=== PATIENT | female | born 1935 | race Caucasian/White ===

== ENCOUNTER → 2017-07-17 | Outpatient (CLI) | payer OTHER ==
[~2017-07-17] MED LIST: GABA-1218 PO; INSDGI SC; LEVO150T9 PO; LPT40 PO; NRV5 PO; PLV75 PO
== END | disposition home or self-care (01) ==
LOC: C.LABSPEC 16:57
PROVIDERS: ATTEND Urology
DX: N20.0 Calculus of kidney (principal)

== ENCOUNTER → 2017-09-19 | Outpatient (CLI) | payer OTHER ==
[~2017-09-19] MED LIST changes: +ATOR-22 PO; +CLOP1TAB15 PO; +LEVO125T5 PO; -LEVO150T9 PO; -LPT40 PO; +OXYC-57 PO; -PLV75 PO; +PRED10TA PO; +TAMS0.4C38 PO; +TRAM-10 PO
== END | disposition home or self-care (01) ==
LOC: C.LABSPEC 17:01
PROVIDERS: ATTEND Urology
DX: N20.0 Calculus of kidney (principal); N39.0 Urinary tract infection, site not specified

== ENCOUNTER 2019-04-05 20:17 | Inpatient (IN) ==
[2019-04-05 20:56] LABS: Basophils # (auto) 0.02 K/uL (0-0.2); Basophils % (auto) 0.2 %; Eosinophils # (auto) 0.12 K/uL (0-0.5); Eosinophils % (auto) 1.4 %; Hematocrit (blood only) 44.7 % (37-47); Hemoglobin 14.5 g/dL (12.0-16.0); Immature Granulocytes # (auto) 0.03 K/uL (0.00-0.02); Immature Granulocytes % (auto) 0.4 %; Lymphocytes # (auto) 2.29 K/uL (1.2-3.4); Lymphocytes % (auto) 27.6 %; Mean Corpuscular Hemoglobin 31.1 pg (25-34); Mean Corpuscular Hgb Conc 32.4 g/dL (32-36); Mean Corpuscular Volume 95.9 fL (80-100); Mean Platelet Volume 10.2 fL (7.4-10.4); Monocytes # (auto) 0.95 K/uL (0.11-0.59); Monocytes % (auto) 11.5 %; Neutrophils # (auto) 4.88 K/uL (1.4-6.5); Neutrophils % (auto) 58.9 %; Platelet Count 416 K/uL (130-400); RDW Coefficient of Variation 14.3 % (11.5-14.5); RDW Standard Deviation 49.5 fL (36.4-46.3); Red Blood Count 4.66 M/uL (4.2-5.4); White Blood Count 8.29 K/uL (4.8-10.8)
--- NOTE | 2019-04-05 21:10 | Emergency Department Note ---
Entered by Asif Bhardwaj acting as a scribe for History of Present Illness General Chief complaint: Headache Stated complaint: HEADACHE,TROUBLE FOCUSING,TROUBLE SPEAKING Time Seen by Provider: 04/05/19 20:48 Source: patient History of Present Illness Onset (ago): day(s) (this morning) Location: head Pain Consistency: + constant Quality: + other (headache) Associated symptoms: + other (Positive for "garbled speech.") The patient is an 84 year old female who presents to the emergency department with complaints of a constant headache beginning this morning. The patient states that she has a history of two previous strokes and a previous concussion. She notes that she developed a headache around 0100 this morning. She reports that a friend visited her today, and she states that she had garbled speech around 1700. She notes that her garbled speech has since resolved, but she reports that she still has a headache. Home Medications Home Medications Medication Instructions Recorded Confirmed Type clopidogrel 75 mg PO QPM 10/16/18 04/05/19 History insulin glargine [Lantus Solostar 5 - 20 unit SUBCUT QPM 10/16/18 04/05/19 History U-100 Insulin] levothyroxine 125 mcg PO QAM 10/16/18 04/05/19 History acetaminophen 325 mg PO DIRECTED PRN 12/01/18 04/05/19 History tramadol 50 mg PO Q6H PRN 12/01/18 04/05/19 History ergocalciferol (vitamin D2) 50,000 unit PO WK 04/05/19 04/05/19 History [Vitamin D2] Allergies Allergy/AdvReac Type Severity Reaction Status Date / Time aspirin Allergy Severe ANAPHYLAXIS Verified 12/01/18 18:02 bee venom protein (honey bee) Allergy Severe Anaphylaxis Verified 12/01/18 18:02 tomato Allergy Severe THROATS Verified 12/01/18 18:02 SWELLS - PT CAN EAT COOKED TOMATOES, NOT RAW TOMATOE ibuprofen Allergy Intermediate RESP Verified 12/01/18 18:02 DISTRESS;ITCHY Penicillins Allergy Mild HIVES, Verified 12/01/18 18:02 ITCHING metformin Allergy Unknown Unknown Verified 12/01/18 18:02 Sulfa (Sulfonamide AdvReac Intermediate SEVERE Verified 12/01/18 18:02 Antibiotics) HEADACHE codeine AdvReac Unknown SYNTHETIC Verified 12/01/18 18:02 CODEINE CAUSES NAUSEA-CAN TOLERATE TYLENOL NO.3 Past Med/Surg History Medical History (Updated 04/05/19 @ 21:49 by Parish Higuera DO) Diabetes mellitus, type II (Chronic) Dyslipidemia (Chronic) Fibromyalgia (Chronic) History of breast cancer (Resolved) "s/p mastectomy" History of TIA (transient ischemic attack) (Chronic) Hypothyroidism (Chronic) PMR (polymyalgia rheumatica) (Chronic) Stroke Unspecified asthma (Chronic) Surgical History H/O cystoscopy (Resolved) H/O mastectomy (Resolved) "R side secondary to breast CA 2002" H/O total hip arthroplasty (Resolved) "2002" History of cholecystectomy (Resolved) History of tubal ligation (Resolved) Family History (Updated 10/16/18 @ 20:43 by Emma Dockery) Other No pertinent family history in first degree relatives Social History Preferred Language: Namibian Feels Safe at Home: Yes Smoking Status: Never smoker Review of Systems See HPI for pertinent positives & negatives. and A total of 10 systems reviewed and were otherwise negative Physical Exam Vital Signs Vital Signs - 24 hr 04/05/19 20:23 04/05/19 20:55 04/05/19 21:17 Temperature 36.4 C L Temperature Source Oral Pulse Rate 98 H Pulse Rate [Bilateral Apical] 85 86 Respiratory Rate 18 20 20 Respiratory Effort / Characteristics Non-Labored Spontaneous Non-Labored Respiratory Depth Normal Normal Blood Pressure 171/91 H Blood Pressure [Left Arm] 172/94 H 176/90 H Blood Pressure Mean 117 Blood Pressure Mean [Left Arm] 120 118 Blood Pressure Position [Left Arm] Lying Sitting Pulse Oximetry 97 98 98 Oxygen Delivery Method Room Air Room Air Room Air Sepsis Recent Fever Within 48 Hours No Sepsis Action Taken by Nursing No Action Required 04/05/19 22:09 Temperature Temperature Source Pulse Rate Pulse Rate [Bilateral Apical] 84 Respiratory Rate 20 Respiratory Effort / Characteristics Non-Labored Respiratory Depth Normal Blood Pressure Blood Pressure [Left Arm] 165/78 H Blood Pressure Mean Blood Pressure Mean [Left Arm] 107 Blood Pressure Position [Left Arm] Pulse Oximetry 95 Oxygen Delivery Method Room Air Sepsis Recent Fever Within 48 Hours Sepsis Action Taken by Nursing VITAL SIGNS: were reviewed as above. GENERAL:Non-toxic in appearance. SKIN: Warm dry and pink. HEAD: Normocephalic and atraumatic. OROPHARYNX: Is clear and moist NECK: Supple without lymphadenopathy or meningismus. LUNGS: clear. HEART: Regular rate and rhythm. ABDOMEN: Soft and nontender. EXTREMITIES: Warm and well perfused. NEUROLOGICALLY: Awake alert and oriented without focal deficit. Cranial nerves 2-12 are intact. There is no pronator drift. Cerebellar testing is within normal limits. There is no nystagmus. There is no facial droop. Speech is clear. Vision is grossly normal. MUSCULOSKELETAL: Good muscle tone. No evidence of trauma. Course Course 2050: The patient was evaluated in room B2. A complete history and physical exam was performed. 2214: Upon reevaluation, the patient is stable. I discussed the findings and the treatment plan with the patient. She expresses agreement and understanding. [facility] The patient will be evaluated for further management. Consultations Consultation #1: I reviewed the patient's [facility] He will evaluate the patient for further management. Time: 22:15 Medical Decision Making Differential Diagnosis Differential Diagnosis includes but is not limited to dehydration, stroke, anemia, hypoglycemia, hyponatremia, hypernatremia, urinary tract infection, pneumonia, bronchitis, sepsis, gastroenteritis, additional abdominal pathology, metabolic abnormalities and infections. Medical Records Attestation: I reviewed the patient's medical records. Home Medications Current Medication List: was personally reviewed by me Laboratory Data Attestation: I reviewed the patient's lab results. Result diagrams: 04/05/19 20:45 04/05/19 20:45 Lab Results 04/05/19 04/05/19 Range/Units 20:45 20:45 WBC 8.29 (4.8-10.8) K/uL RBC 4.66 (4.2-5.4) M/uL Hgb 14.5 (12.0-16.0) g/dL Hct 44.7 (37-47) % MCV 95.9 (80-100) fL MCH 31.1 (25-34) pg MCHC 32.4 (32-36) g/dL RDW Std Deviation 49.5 H (36.4-46.3) fL RDW Coeff of Dariusz 14.3 (11.5-14.5) % Plt Count 416 H (130-400) K/uL MPV 10.2 (7.4-10.4) fL Immature Gran % (Auto) 0.4 % Neut % (Auto) 58.9 % Lymph % (Auto) 27.6 % [place] % (Auto) 11.5 % Eos % (Auto) 1.4 % Baso % (Auto) 0.2 % Immature Gran # (Auto) 0.03 H (0.00-0.02) K/uL Neut # (Auto) 4.88 (1.4-6.5) K/uL Lymph # (Auto) 2.29 (1.2-3.4) K/uL [place] # (Auto) 0.95 H (0.11-0.59) K/uL Eos # (Auto) 0.12 (0-0.5) K/uL Baso # (Auto) 0.02 (0-0.2) K/uL Sodium 139 (136-145) mmol/L Potassium 3.9 (3.5-5.1) mmol/L Chloride 101 (98-107) mmol/L Carbon Dioxide 31 (21-32) mmol/L Anion Gap 6.0 (3-11) BUN 19 H (7-18) mg/dl Creatinine 0.73 (0.6-1.2) mg/dl Est Cr Clr Drug Dosing 62.1 ml/min Est GFR ( Amer) 88.9 Est GFR (Non-Af Amer) 76.7 BUN/Creatinine Ratio 26.0 H (10-20) Glucose 158 H (70-99) mg/dl Calcium 9.8 (8.5-10.1) mg/dl Total Bilirubin 0.3 (0.2-1) mg/dl AST 19 (15-37) U/L ALT 28 (12-78) U/L Alkaline Phosphatase 73 (45-117) U/L Total Protein 8.7 H (6.4-8.2) gm/dl Albumin 4.1 (3.4-5.0) gm/dl Globulin 4.6 H (2.5-4.0) gm/dl Albumin/Globulin Ratio 0.9 (0.9-2) TSH 1.780 (0.300-4.500) uIu/ml Imaging Data Radiologist's Impression: Radiology results as stated below per my review and the radiologist's interpretation: CT head/brain wo con FINDINGS: 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 Ventricles and sulci normal in size. No hemorrhage. Brain parenchyma normal in appearance with preserved vinson-white differentiation. No acute territorial infarct. No mass effect or midline shift. No extra-axial fluid collection. Polypoid mucosal thickening in the left maxillary sinus. Calvarium intact. IMPRESSION: 1. No acute intracranial abnormality. ACT 112: Negative or not required by law. Electronically signed by: Zhao Pritchett M.D. 04/05/2019 9:19 PM XR chest 1V portable FINDINGS: Atherosclerosis of the aortic arch. Cardiac silhouette borderline enlarged. No focal opacity. No large effusion or pneumothorax. Elevation of the right hemidiaphragm. Surgical clips project over the right axilla. Osteopenia suspected. Cholecystectomy clips may be present. IMPRESSION: 1. Borderline cardiomegaly. No other convincing evidence of acute cardiopulmonary disease. ACT 112: Negative or not required by law. Electronically signed by: Zhao Pritchett M.D. 04/05/2019 9:27 PM ECG Data Attestation: I personally reviewed and interpreted this ECG as follows: Indication: + other ("garbled speech") Rate (beats per minute): 89 Rhythm: + normal sinus ECG Intervals/blocks: + Normal QT-c ECG ST segments: no ST elevation ECG Findings: no PVCs Blood Pressure Blood Pressure Findings: Elevated blood pressure Blood Pressure Disposition: further management by hospitalist PETEY Narrative This is an 84-year-old female who presents to the ED with a chief complaint of strokelike symptoms. The patient presents stating that around 530 today she had difficulty speaking and could not get her words out. She also states that she cannot understand the television. Her symptoms lasted for about an hour or so and then resolved. When she came to the ED for evaluation, her symptoms have completely resolved and she is now feeling better. The patient states that yesterday around midnight she had a headache on the top of her head. She is currently on Plavix for history of TIA/CVA. Her last episode was about 4 years ago, she states. Her vital signs reveal hypertension. Her physical neuro exam were normal. CT scan of the brain did not show acute process. Chest x-ray is negative for acute disease. CBC and chemistry panel as well as TSH are normal. The patient was told the results of the test. Because of the severity of the symptoms, although resolved, the patient would benefit from further evaluation as an inpatient. She will be seen by the hospitalist service. Impression & Plan Brain TIA Discharge Plan Visit Data Chief Complaint: Headache Stated Complaint: HEADACHE,TROUBLE FOCUSING,TROUBLE SPEAKING ED Provider: Parish Higuera Discharge Problem: Brain TIA Patient Disposition: Being Evaluated by Hospitalist Forms Stand Alone Forms: My [facility] Prescriptions Prescriptions: No Action Lantus Solostar U-100 Insulin 100 unit/mL (3 mL) insulin pen 5 - 20 unit subcut QPM RF: 0 levothyroxine 125 mcg tablet 125 mcg PO QAM RF: 0 clopidogrel 75 mg tablet 75 mg PO QPM RF: 0 acetaminophen 325 mg Tablet 325 mg PO DIRECTED PRN (Reason: Pain) RF: 0 tramadol 50 mg tablet 50 mg PO Q6H PRN (Reason: Pain) RF: 0 ergocalciferol (vitamin D2) [Vitamin D2] 1,250 mcg (50,000 unit) capsule 50,000 unit PO WK RF: 0 Referrals Referrals: Zhao Chanel MD [Primary Care Provider] - The scribe's documentation has been prepared under my direction and personally reviewed by me in its entirety. I confirm that the note above accurately reflects all work, treatment, procedures, and medical decision making performed by me.
[2019-04-05 21:13] LABS: Albumin Level 4.1 gm/dl (3.4-5.0); Calcium 9.8 mg/dl (8.5-10.1); Creatinine Clr Calc Pharmacy 62.1 ml/min; Est GFR (African American) 88.9; Est GFR (Non-African American) 76.7; Potassium 3.9 mmol/L (3.5-5.1)
--- NOTE | 2019-04-05 21:20 | CT Scan Report ---
CT head/brain wo con CLINICAL HISTORY: 84 years-old Female presenting with tia like symptoms speech related. TECHNIQUE: Multidetector CT imaging of the head was performed without the use of intravenous contrast . IV contrast: None. One or more dose lowering techniques were used consistent with the principles of ALARA (as low as reasonably achievable), including automatic exposure control, mA or kV adjustment t o individual patient size, and/or use of iterative reconstruction. COMPARISON: 10/16/2018. CT DOSE (mGy.cm): The estimated cumulative dose is 614.27 mGy.cm. FINDINGS: Poultry Eviscerator topogram: Unremarkable. Ventricles and sulci normal in size. No hemorrhage. Brain parenchyma normal in appearance with preser eileen vinson-white differentiation. No acute territorial infarct. No mass effect or midline shift. No ext ra-axial fluid collection. Polypoid mucosal thickening in the left maxillary sinus. Calvarium intact. IMPRESSION: 1. No acute intracranial abnormality. ACT 112: Negative or not required by law. Electronically signed by: Zhao Pritchett M.D. 04/05/2019 9:19 PM
[2019-04-05 21:23] LABS: Albumin Globulin Ratio 0.9 (0.9-2); Bilirubin,Total 0.3 mg/dl (0.2-1); Globulin 4.6 gm/dl (2.5-4.0); Thyroid Stimulating Hormone 1.78 uIu/ml (0.300-4.500); Total Protein 8.7 gm/dl (6.4-8.2)
--- NOTE | 2019-04-05 21:29 | XRay Report ---
XR chest 1V portable CLINICAL HISTORY: 84 years-old Female presenting with weakness. TECHNIQUE: Portable upright AP view of the chest was obtained. COMPARISON: 12/21/2015. FINDINGS: Atherosclerosis of the aortic arch. Cardiac silhouette borderline enlarged. No focal opacity. No larg e effusion or pneumothorax. Elevation of the right hemidiaphragm. Surgical clips project over the rig ht axilla. Osteopenia suspected. Cholecystectomy clips may be present. IMPRESSION: 1. Borderline cardiomegaly. No other convincing evidence of acute cardiopulmonary disease. ACT 112: Negative or not required by law. Electronically signed by: Zhao Pritchett M.D. 04/05/2019 9:27 PM
[2019-04-05] MEDS ORDERED: ACETAMINOPHEN 325 MG TAB PO PRN (23:43)
[2019-04-05] MEDS ORDERED: ONDANSETRON INJ 2 MG/ML 2 ML VIAL IV PRN (23:43)
[2019-04-05] MEDS ORDERED: PHARMACIST DISCHARGE MED REC CONSULT PRN (23:43)
[2019-04-05] MEDS ORDERED: NITROGLYCERIN SL 0.4 MG/TAB TAB SL PRN (23:43)
[2019-04-05] MEDS ORDERED: TRAMADOL HCL 50 MG TABLET PO PRN (23:43)
[2019-04-05] MEDS: SODIUM CHLORIDE 0.9% 1000ML 1,000 ML IV SCH (23:53)
[2019-04-06] MEDS ORDERED: GLUCOSE 10 TABS/TUBE PO PRN (00:15)
[2019-04-06] MEDS ORDERED: GLUCAGON FOR INJ 1 MG VIAL SQ PRN (00:15)
[2019-04-06] MEDS ORDERED: CARBOHYDRATES FOR HYPOGLYCEMIA PO PRN (00:15)
[2019-04-06] MEDS ORDERED: GLUCOSE 40% GEL 15 GM TUBE PO PRN (00:15)
[2019-04-06] MEDS ORDERED: DEXTROSE 50% 50 ML SYRINGE IV PRN (00:15)
[2019-04-06] MEDS: INSULIN GLARGINE SOLOSTAR 100 UNITS/ML 3 ML PEN SQ SCH ×2 (00:42→20:41)
[2019-04-06 01:16] LABS: Appearance Urine Cloudy (Clear); Bacteria Urine Automated Negative (Negative); Bilirubin Urine Negative (Negative); Blood Urine Negative (Negative); Color Urine Yellow; Epithelial Cell Urine Auto >30 /lpf (0-5); Glucose Urine UA Negative (Negative); Ketones Urine Negative (Negative); Leukocyte Esterase Urine 2+ (Negative); Nitrite Urine Negative (Negative); Protein Urine Negative (Negative); RBC Urine Automated 0-4 /hpf (0-4); Specific Gravity Urine 1.024 (1.000-1.030); Urobilinogen Urine Negative (Negative)
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
[2019-04-06 01:38] LABS: Calcium Oxalate Crystals Urine Present (None Prsent)
[2019-04-06] MEDS: LEVOTHYROXINE SODIUM 125 MCG TABLET PO SCH (06:06)
[2019-04-06 06:59] LABS: Basophils # (auto) 0.02 K/uL (0-0.2); Basophils % (auto) 0.3 %; Eosinophils # (auto) 0.13 K/uL (0-0.5); Eosinophils % (auto) 1.7 %; Hematocrit (blood only) 40.6 % (37-47); Hemoglobin 13.1 g/dL (12.0-16.0); Immature Granulocytes # (auto) 0.01 K/uL (0.00-0.02); Immature Granulocytes % (auto) 0.1 %; Lymphocytes % (auto) 30.8 %; Mean Corpuscular Hemoglobin 30.5 pg (25-34); Mean Corpuscular Hgb Conc 32.3 g/dL (32-36); Mean Corpuscular Volume 94.6 fL (80-100); Mean Platelet Volume 10.1 fL (7.4-10.4); Monocytes # (auto) 0.87 K/uL (0.11-0.59); Monocytes % (auto) 11.6 %; Neutrophils # (auto) 4.14 K/uL (1.4-6.5); Neutrophils % (auto) 55.5 %; Platelet Count 350 K/uL (130-400); RDW Coefficient of Variation 14.2 % (11.5-14.5); RDW Standard Deviation 49.3 fL (36.4-46.3); Red Blood Count 4.29 M/uL (4.2-5.4); White Blood Count 7.47 K/uL (4.8-10.8)
[2019-04-06] MEDS ORDERED: PERFLUTREN LIPID MICROSPHERE (DEFINITY) IV ONE (07:37)
[2019-04-06 07:38] LABS: BUN Creatinine Ratio 29.2 (10-20); Calcium 8.9 mg/dl (8.5-10.1); Creatinine Clr Calc Pharmacy 83.9 ml/min; Est GFR (African American) 101.9; Est GFR (Non-African American) 87.9; Potassium 3.7 mmol/L (3.5-5.1)
--- NOTE | 2019-04-06 08:01 | Electrocardiogram Report ---
Test Reason : Blood Pressure : / mmHG Vent. Rate : 089 BPM Atrial Rate : 089 BPM P-R Int : 138 ms QRS Dur : 084 ms QT Int : 368 ms P-R-T Axes : 034 026 047 degrees QTc Int : 447 ms Normal sinus rhythm Normal ECG When compared with ECG of 16-OCT-2018 18:12, R wave progression improved Otherwise no significant change Confirmed by Cruz Starr ([id number]) on 04/06/2019 8:01:19 AM Referred By: REFERRED SELF Confirmed By:Cruz Starr
[2019-04-06] MEDS: INSULIN ASPART 100 UNITS/ML 3 ML PEN SC SCH ×4 (08:40→20:43)
[2019-04-06] MEDS: ROSUVASTATIN CALCIUM 5 MG TAB PO SCH (08:41)
[2019-04-06] MEDS ORDERED: ERGOCALCIFEROL 50,000 UNITS CAP PO SCH (09:00)
[2019-04-06] MEDS ORDERED: LORazepam 0.25 MG/0.5 ML VIAL IV PRN (09:38)
[2019-04-06] MEDS ORDERED: GADOBUTROL 65ML VIAL IV PRN (11:27)
--- NOTE | 2019-04-06 11:46 | Magnetic Resonance Report ---
MRI OF THE BRAIN WITHOUT AND WITH IV CONTRAST CLINICAL HISTORY: Speech difficulties. Possible stroke. COMPARISON STUDY: MRI the brain December 21, 2015. Head CT April 05, 2019. TECHNIQUE: Utilizing a 1.5 Tricia magnet and dedicated coil, multiplanar, multiecho imaging of the br ain was performed pre and postcontrast administration. IV administration of 7 mL of Gadavist contras t was uneventful. Thin cut T1 post contrast imaging was performed with multiplanar reconstructions. FINDINGS: There are no foci of restricted diffusion to suggest acute infarct. No acute intracranial h emorrhage, midline shift or mass effect is present. Ventricular system is normal. Basilar cisterns ar e patent. There are no extra-axial collections. Flow-voids for the major intracranial vessels are pre sent. There is no intracranial mass or pathologic enhancement. White matter T2 hyperintense foci sugg est small vessel disease. There is an old infarct within the left cooley radiata. A lobulated lesion within left maxillary sinus is unchanged from prior MRI. This is benign given stability. Calvarial si gnal is normal. IMPRESSION: 1. No acute intracranial findings. 2. No intracranial mass or pathologic enhancement. 3. No significant change in appearance of the brain. ACT 112: Negative or not required by law. Electronically signed by: Andre Salguero M.D. 04/06/2019 11:44 AM
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
[2019-04-06] MEDS ORDERED: OPTIRAY 320 125ml IV PRN (14:42)
--- NOTE | 2019-04-06 15:04 | CT Scan Report ---
CT ANGIOGRAPHY OF THE NECK WITH CONTRAST CLINICAL HISTORY: Speech difficulties. Possible stroke. COMPARISON STUDY: Carotid ultrasound November 16, 2015. MRA of the neck December 23, 2015. Technique: CT angiography of the carotid and vertebral arteries was obtained using [employer] 320 IV and 3D reconstruction on an independent workstation. NASCET criteria was utilized. Automated exposure c ontrol was utilized for the study. A dose lowering technique was utilized adhering to the principles of ALARA. CT DOSE: 533.95 mGy.cm Findings: The origins of the great vessels are not well assessed on this exam. There is mild to moder ate plaque within the proximal bilateral cervical internal carotid arteries without significant steno sis. Major vasculature of the neck is patent. There is no dissection. There is no aneurysmal dilatati on lung apices are clear. There is no cervical lymphadenopathy. No cervical spine fracture is noted. CTA of the head will be reported separately. IMPRESSION: Mild to moderate atherosclerotic plaque within the proximal bilateral internal carotid arteries witho ut significant stenosis. No dissection. ACT 112: Negative or not required by law. Electronically signed by: Andre Salguero M.D. 04/06/2019 3:03 PM
--- NOTE | 2019-04-06 15:09 | CT Scan Report ---
CTA ANGIOGRAPHY OF THE HEAD CLINICAL HISTORY: Possible stroke. Speech difficulties. COMPARISON STUDY: MRI of the brain performed earlier today. MRA of the head November 24, 2015 and O ct2015. TECHNIQUE: Helical axial images of the head were obtained following uneventful intravenous administr ation of 120 cc of Optir[employer] 320. Automated exposure control was utilized for the study. A dose lower ing technique was utilized adhering to the principles of ALARA. FINDINGS: No intraluminal thrombus, dissection or abrupt vessel cut off is identified within the intr acranial vessels. There is moderate plaque within the bilateral cavernous carotids with mild stenosis of the left cavernous carotid. Mild narrowing of the left M1 segment. Posterior circulation is intac t. There is persistence of the right posterior cerebral artery. IMPRESSION: 1. No acute findings on CTA of the head. 2. Moderate plaque within the intracranial vessels, as detailed above. This is similar to prior MRA o f December 23, 2015. ACT 112: Negative or not required by law. Electronically signed by: Andre Salguero M.D. 04/06/2019 3:08 PM
--- NOTE | 2019-04-06 15:41 | Hospitalist Progress Note ---
Date of Service April 06, 2019 Assessment & Plan (1) Aphasia: History of stroke in the past Hypertension -history of stroke, thalamus, in 2011, and in 2016 -reported to have aphasia and word finding difficulties at home and witnessed by patient's friend which may have last around 30 to 40 minutes at home on 04/05/2019 -no apparent motor or sensory deficits reported during that home episode and no loss of consciousness reported -no apparent symptoms subsequently -high blood pressure noted on arrival to ED with systolic in 170s -evaluated in the ED on 04/05/2019 and admitted to medical telemetry [facility] -while a concern for acute Transient Ischemic Attack (TIA) or acute stroke as cause of the resolved Aphasia is considered, workup to date is generally unrevealing: -CT head/brain without contrast: Ventricles and sulci normal in size. No hemorrhage. Brain parenchyma normal in appearance with preserved vinson-white differentiation. No acute territorial infarct. No mass effect or midline shift. No extra-axial fluid collection. Polypoid mucosal thickening in the left maxillary sinus. Calvarium intact. IMPRESSION: 1. No acute intracranial abnormality. -Brain MRI: There are no foci of restricted diffusion to suggest acute infarct. No acute intracranial hemorrhage, midline shift or mass effect is present. Ventricular system is normal. Basilar cisterns are patent. There are no extra-axial collections. Flow-voids for the major intracranial vessels are present. There is no intracranial mass or pathologic enhancement. White matter T2 hyperintense foci suggest small vessel disease. There is an old infarct within the left cooley radiata. A lobulated lesion within left maxillary sinus is unchanged from prior MRI. This is benign given stability. Calvarial signal is normal. IMPRESSION: 1. No acute intracranial findings. 2. No intracranial mass or pathologic enhancement. 3. No significant change in appearance of the brain. -Head CTA: No intraluminal thrombus, dissection or abrupt vessel cut off is identified within the intracranial vessels. There is moderate plaque within the bilateral cavernous carotids with mild stenosis of the left cavernous carotid. Mild narrowing of the left M1 segment. Posterior circulation is intact. There is persistence of the right posterior cerebral artery. IMPRESSION: 1. No acute findings on CTA of the head. 2. Moderate plaque within the intracranial vessels -Neck CTA: The origins of the great vessels are not well assessed on this exam. There is mild to moderate plaque within the proximal bilateral cervical internal carotid arteries without significant stenosis. Major vasculature of the neck is patent. There is no dissection. There is no aneurysmal dilatation lung apices are clear. There is no cervical lymphadenopathy. No cervical spine fracture is noted. CTA of the head will be reported separately. IMPRESSION: Mild to moderate atherosclerotic plaque within the proximal bilateral internal carotid arteries without significant stenosis. No dissection -telemetry normal sinus rhythm to date -echocardiogram with ejection fraction 60 to 65% and no noted ASD or PFO 04/06/2019: because patient imaging studies with IV contrast, will continue IV fluids and repeat renal labs on 04/07/2019 and continue to monitor on telemetry for now. patient also reported being on Rosuvastatin (Crestor) in the past but was off this medication as because of good lipid profiles. LDL on this admission is 80 which is not too bad. because patient can only take current home medication of clopidogrel 75 mg daily as antiplatelet only (no aspirin because of aspirin allergy with reported anaphylaxis as side effect), will start patient on low dose rosuvastatin 5 mg daily for now. 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 History of breast cancer status post right mastectomy in 2002. -right arm has bracelet stating"restricted limb" to avoid blood draws from that arm Deep venous thrombosis prophylaxis, sequential compression devices for now Subjective patient is slow to sit up on her own but does not appear to need assistance with bedside mobility. No focal neurological deficits at this time. no dizziness. no headache. speech is normal and no aphasia and no dysarthria. no chest pain. no shortness of breath. no abdominal pain. no dizziness. no headache. no visual complaints Review of Systems Review of Systems: All systems reviewed & are unremarkable except as noted in HPI & below Physical Exam Constitutional: comfortable Eyes: PERRL, conjunctivae normal, anicteric sclerae EOM intact bilaterally ENMT: external ear and nose normal, oropharynx normal Neck: trachea midline, no thyromegaly normal visual inspection Respiratory: normal respiratory effort, lungs clear to auscultation Cardiovascular: RRR, no murmur, no edema Gastrointestinal (Abdomen): normal bowel sounds, soft, nontender, no hepatosplenomegaly Musculoskeletal: Head/Neck/Chest: normocephalic and head atraumatic Neurologic: PERRL, EOMI, accommodation nl, no face palsy, no dysarthria CN's II-XI intact bilaterally Psychiatric: A+Ox3, euthymic affect Results & Data ([facility]) Vital Signs (Past 12 Hours) Vital Signs Temp Pulse Resp BP Pulse Ox 04/06/19 11:56 36.8 C 75 18 150/76 H 96 04/06/19 08:23 36.8 C 84 18 142/67 H 96
[2019-04-06] MEDS: SODIUM CHLORIDE 0.9% 1000ML 1,000 ML IV SCH ×2 (16:15→16:38)
[2019-04-06] MEDS ORDERED: CLOPIDOGREL BISULFATE 75 MG TAB PO SCH (21:00)
[2019-04-07] MEDS: LEVOTHYROXINE SODIUM 125 MCG TABLET PO SCH (04:59)
[2019-04-07] MEDS: SODIUM CHLORIDE 0.9% 1000ML 1,000 ML IV SCH (04:59)
[2019-04-07 06:43] LABS: Basophils # (auto) 0.02 K/uL (0-0.2); Basophils % (auto) 0.3 %; Eosinophils # (auto) 0.15 K/uL (0-0.5); Eosinophils % (auto) 2.3 %; Hematocrit (blood only) 37.9 % (37-47); Hemoglobin 12.7 g/dL (12.0-16.0); Immature Granulocytes # (auto) 0.03 K/uL (0.00-0.02); Immature Granulocytes % (auto) 0.5 %; Lymphocytes # (auto) 1.49 K/uL (1.2-3.4); Mean Corpuscular Hemoglobin 31.3 pg (25-34); Mean Corpuscular Hgb Conc 33.5 g/dL (32-36); Mean Corpuscular Volume 93.3 fL (80-100); Mean Platelet Volume 9.6 fL (7.4-10.4); Monocytes # (auto) 0.75 K/uL (0.11-0.59); Monocytes % (auto) 11.6 %; Neutrophils # (auto) 4.04 K/uL (1.4-6.5); Neutrophils % (auto) 62.3 %; Platelet Count 333 K/uL (130-400); RDW Coefficient of Variation 14.1 % (11.5-14.5); RDW Standard Deviation 48.3 fL (36.4-46.3); Red Blood Count 4.06 M/uL (4.2-5.4); White Blood Count 6.48 K/uL (4.8-10.8)
[2019-04-07 06:56] LABS: Estimated Average Glucose 137 mg/dl; Hemoglobin A1C 6.4 % (4.5-5.6)
[2019-04-07 07:16] LABS: BUN Creatinine Ratio 29.8 (10-20); Creatinine Clr Calc Pharmacy 79.5 ml/min; Est GFR (African American) 100.1; Est GFR (Non-African American) 86.3; Potassium 3.9 mmol/L (3.5-5.1)
[2019-04-07] MEDS: INSULIN ASPART 100 UNITS/ML 3 ML PEN SC SCH ×2 (08:35→11:53)
[2019-04-07] MEDS ORDERED: ROSUVASTATIN CALCIUM 5 MG TAB PO SCH ×2 (09:00→21:00)
[2019-04-07] MEDS ORDERED: NURSING DECISION MEDICATION ONE ×2 (09:49→11:22)
[2019-04-07] MEDS: ROSUVASTATIN CALCIUM 5 MG TAB PO SCH (11:16)
[2019-04-07] MEDS ORDERED: STROKE PATIENT DISCHARGE STA (13:32)
--- NOTE | 2019-04-07 13:39 | Hospitalist Progress Note ---
Date of Service April 07, 2019 Assessment & Plan (1) Aphasia: Aphasia secondary to Transient ischemic attack (TIA) History of stroke in the past Hypertension -history of stroke, thalamus, in 2011, and in 2016 -reported to have aphasia and word finding difficulties at home and witnessed by patient's friend which may have last around 30 to 40 minutes at home on 04/05/2019 -no apparent motor or sensory deficits reported during that home episode and no loss of consciousness reported -no apparent symptoms subsequently -high blood pressure noted on arrival to ED with systolic in 170s -evaluated in the ED on 04/05/2019 and admitted to medical telemetry [facility] -while a concern for acute Transient Ischemic Attack (TIA) or acute stroke as cause of the resolved Aphasia is considered, workup to date is generally unrevealing: -CT head/brain without contrast: Ventricles and sulci normal in size. No hemorrhage. Brain parenchyma normal in appearance with preserved vinson-white differentiation. No acute territorial infarct. No mass effect or midline shift. No extra-axial fluid collection. Polypoid mucosal thickening in the left maxillary sinus. Calvarium intact. IMPRESSION: 1. No acute intracranial abnormality. -Brain MRI: There are no foci of restricted diffusion to suggest acute infarct. No acute intracranial hemorrhage, midline shift or mass effect is present. Ventricular system is normal. Basilar cisterns are patent. There are no extra-axial collections. Flow-voids for the major intracranial vessels are present. There is no intracranial mass or pathologic enhancement. White matter T2 hyperintense foci suggest small vessel disease. There is an old infarct within the left cooley radiata. A lobulated lesion within left maxillary sinus is unchanged from prior MRI. This is benign given stability. Calvarial signal is normal. IMPRESSION: 1. No acute intracranial findings. 2. No intracranial mass or pathologic enhancement. 3. No significant change in appearance of the brain. -Head CTA: No intraluminal thrombus, dissection or abrupt vessel cut off is identified within the intracranial vessels. There is moderate plaque within the bilateral cavernous carotids with mild stenosis of the left cavernous carotid. Mild narrowing of the left M1 segment. Posterior circulation is intact. There is persistence of the right posterior cerebral artery. IMPRESSION: 1. No acute findings on CTA of the head. 2. Moderate plaque within the intracranial vessels -Neck CTA: The origins of the great vessels are not well assessed on this exam. There is mild to moderate plaque within the proximal bilateral cervical internal carotid arteries without significant stenosis. Major vasculature of the neck is patent. There is no dissection. There is no aneurysmal dilatation lung apices are clear. There is no cervical lymphadenopathy. No cervical spine fracture is noted. CTA of the head will be reported separately. IMPRESSION: Mild to moderate atherosclerotic plaque within the proximal bilateral internal carotid arteries without significant stenosis. No dissection -telemetry normal sinus rhythm to date -echocardiogram with ejection fraction 60 to 65% and no noted ASD or PFO 04/06/2019: because patient imaging studies with IV contrast, will continue IV fluids and repeat renal labs on 04/07/2019 and continue to monitor on telemetry for now. patient also reported being on Rosuvastatin (Crestor) in the past but was off this medication as because of good lipid profiles. LDL on this admission is 80 which is not too bad. because patient can only take current home medication of clopidogrel 75 mg daily as antiplatelet only (no aspirin because of aspirin allergy with reported anaphylaxis as side effect), will start patient on low dose rosuvastatin 5 mg daily for now. currently blood pressure is controlled for now 04/07/2019: no current neurological deficits or acute telemetry events. Aphasia secondary to Transient ischemic attack (TIA) as the diagnosis in my discussions with neurology service. Discharge to Home LDL is 80. suggested target is LDL of 70 or less. no telemetry events Discharge medications for trial of Rosuvastatin (Crestor) 5 mg daily for 14 days sent electronically [employer] [address] [facility] [place] [address]. 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 History of breast cancer status post right mastectomy in 2002. -right arm has bracelet stating"restricted limb" to avoid blood draws from that arm Discharge Instructions Aphasia secondary to transient ischemic attack (TIA) History of stroke in the past Hypertension Type 2 diabetes mellitus with shelter current use of insulin Admission and Anticipated Discharge Date Admission Date: April 05, 2019 Subjective no acute telemetry events. no acute neurologic symptoms during hospital stay. was recommended by neurology for hospital discharge. discharge instructions discussed at length. Patient wishes to be discharge to home no focal neurological deficits. no headache. no dizziness. no slurred speech. no asymmetric weakness. no fevers. Review of Systems Review of Systems: All systems reviewed & are unremarkable except as noted in HPI & below Physical Exam Constitutional: comfortable Eyes: PERRL, conjunctivae normal, anicteric sclerae EOM intact bilaterally ENMT: external ear and nose normal, oropharynx normal Neck: trachea midline, no thyromegaly normal visual inspection Respiratory: normal respiratory effort, lungs clear to auscultation Cardiovascular: RRR, no murmur, no edema Gastrointestinal (Abdomen): normal bowel sounds, soft, nontender, no hepatosplenomegaly Musculoskeletal: Head/Neck/Chest: normocephalic and head atraumatic Neurologic: PERRL, EOMI, accommodation nl, no face palsy, no dysarthria CN's II-XI intact bilaterally Psychiatric: A+Ox3, euthymic affect Results & Data ([facility]) Vital Signs (Past 12 Hours) Vital Signs Temp Pulse Pulse Resp BP Pulse Ox 04/07/19 11:11 37.0 C 76 19 132/65 95 04/07/19 08:00 78 04/07/19 07:18 36.9 C 77 19 135/70 96 04/07/19 03:31 36.3 C L 81 16 165/84 H 97
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
--- NOTE | 2019-04-07 15:13 | Pharmacy Report ---
Pharmacist Stroke Counseling - Date of Service April 07, 2019 - Scope: Pharmacy has been consulted to provide medication discharge counseling for this patient admitted with transient ischemic attack as per the Pharmacist Discharge Counseling for Stroke Patients Protocol. - Medications on Discharge: Home Medications Medication Instructions Recorded Confirmed Lantus Solostar U-100 Insulin 5 - 20 unit SUBCUT QPM 10/16/18 04/05/19 clopidogrel 75 mg PO QPM 10/16/18 04/05/19 levothyroxine 125 mcg PO QAM 10/16/18 04/05/19 acetaminophen 325 mg PO DIRECTED PRN 12/01/18 04/05/19 tramadol 50 mg PO Q6H PRN 12/01/18 04/05/19 ergocalciferol (vitamin D2) 50,000 unit PO WK 04/05/19 04/05/19 [Vitamin D2] New Rx's Medication Instructions Recorded rosuvastatin [Crestor] 5 mg PO HS 14 Days #14 tab 04/07/19 - Action: The above medications, specifically ones for stroke treatment/prophylaxis, have been reviewed in detail with the patient prior to discharge. This includes indication, common adverse reactions, drug interactions, and medication administration. Medication counseling has been employed using the teach-back method to ensure understanding. - Outcome: The patient has demonstrated understanding of the medications. Please note, they are aware that the pharmacist will call them within 72 hours post-discharge to confirm that the appropriate medications are being taken and answer any further medication related questions the patient might have at that time. Contact information Individual to be contacted: self Relationship to patient (if applicable): N/A Phone number: [phone] Best time to call: anytime except (patient goes to PT) Additional comments: Reviewed Plavix with patient. She initially got this confused with Synthroid. Reviewed side effects (denies any). Denies problems with heartburn. Reviewed Crestor (rosuvastatin) with patient. She was initially concerned because she has many medication allergies and was uncertain if she should start this while no one is around. She was not certain if this was the one she was taking once a week. I told patient that if she tolerated one agent she most likely would be fine with this one. This class not typically associated with allergic reactions. Reviewed ADEs. Thank you for allowing pharmacy to be involved in the care of this patient. Please call [phone] or [phone] with any additional questions
--- NOTE | 2019-04-10 15:10 | Pharmacy Report ---
Pharmacist Post D/C Phone Note - Phone Note: Date of phone call: April 10, 2019. The patient and/or patient marketing sales representative(s) were unable to be reached for a follow-up phone call within the 72 hour time frame. Discharge counseling pharmacist contact information has already been provided to the patient should questions arise. Thank you for allowing us to be involved in the care of this patient. - Home Medications: Home Medications Medication Instructions Recorded Confirmed Lantus Solostar U-100 Insulin 5 - 20 unit SUBCUT QPM 10/16/18 04/05/19 clopidogrel 75 mg PO QPM 10/16/18 04/05/19 levothyroxine 125 mcg PO QAM 10/16/18 04/05/19 acetaminophen 325 mg PO DIRECTED PRN 12/01/18 04/05/19 tramadol 50 mg PO Q6H PRN 12/01/18 04/05/19 ergocalciferol (vitamin D2) 50,000 unit PO WK 04/05/19 04/05/19 [Vitamin D2] New Rx's Medication Instructions Recorded rosuvastatin [Crestor] 5 mg PO HS 14 Days #14 tab 04/07/19
== END 2019-04-07 15:21 | disposition home or self-care (01) | DRG 69 ==
LOC: ED 20:17 → 2S 22:55

== ENCOUNTER 2022-05-24 11:07 | Observation (INO) ==
--- NOTE | 2022-05-24 11:30 | Emergency Department Note ---
History of Present Illness General Chief complaint: Confusion Stated complaint: CONFUSION Time Seen by Provider: 05/24/22 11:14 History of Present Illness Provider complaint: Altered mental status headache Onset (ago): hour(s) 2 87-year-old female presents emergency department for confusion and headache. Son is at bedside giving history. He reports that 2 hours ago the patient started having a headache and became acutely confused. He states he was worried she was having a TIA. No traumas. No blood thinners. Home Medications Medication Instructions Recorded Confirmed Type clopidogrel 75 mg tablet 75 mg PO QPM 10/16/18 05/24/22 History levothyroxine 125 mcg tablet 125 mcg PO QAM 10/16/18 05/24/22 History acetaminophen 325 mg tablet 325 mg PO DIRECTED PRN Pain 12/01/18 05/24/22 History ergocalciferol (vitamin D2) 1,250 50,000 unit PO WK 04/05/19 05/24/22 History mcg (50,000 unit) capsule (Vitamin D2) rosuvastatin 5 mg tablet 5 mg PO DAILY 03/31/21 05/24/22 History Allergies Allergy/AdvReac Type Severity Reaction Status Date / Time aspirin Allergy Severe ANAPHYLAXIS Verified 05/24/22 11:33 bee venom protein (honey bee) Allergy Severe Anaphylaxis Verified 05/24/22 11:33 ibuprofen Allergy Severe RESP Verified 05/24/22 11:33 DISTRESS;ITCHY tomato Allergy Severe THROATS Verified 05/24/22 11:33 SWELLS - PT CAN EAT COOKED TOMATOES, NOT RAW TOMATOE Penicillins Allergy Intermediate HIVES, Verified 05/24/22 11:33 ITCHING metformin Allergy Unknown Unknown Verified 05/24/22 11:33 codeine AdvReac Intermediate SYNTHETIC Verified 05/24/22 11:33 CODEINE CAUSES NAUSEA-CAN TOLERATE TYLENOL NO.3 Sulfa (Sulfonamide AdvReac Intermediate SEVERE Verified 05/24/22 11:33 Antibiotics) HEADACHE Past Med/Surg History Medical History Diabetes mellitus, type II Dyslipidemia Fibromyalgia History of breast cancer "s/p mastectomy" History of TIA (transient ischemic attack) Hypothyroidism PMR (polymyalgia rheumatica) Stroke Unspecified asthma Surgical History H/O cystoscopy H/O mastectomy "R side secondary to breast CA 2002" H/O total hip arthroplasty "2002" History of cholecystectomy History of tubal ligation Family History Other No pertinent family history in first degree relatives Social History Smoking Status: Never smoker Hx Alcohol Use: No Hx Substance Use: No Preferred Language: Grenadian Communication Ability: Effective Visual Impairment: No Limitations [employer] Security Supervisor Required: No Beliefs That Will Affect Care: None Current Living Situation: Alone Feels Safe at Home: Yes Assistive Devices: Walker Physical Exam Vital Signs Vital Signs - 24 hr 05/24/22 11:08 05/24/22 11:17 05/24/22 12:15 Temperature 36.7 C Temperature Source Oral Pulse Rate 109 H 90 Pulse Rate [Apical] Respiratory Rate 20 Respiratory Effort / Characteristics Non-Labored Spontaneous Respiratory Depth Normal Respiratory Pattern Regular Blood Pressure 206/94 H Blood Pressure [Left Arm] Blood Pressure Mean 131 Blood Pressure Mean [Left Arm] Pulse Oximetry 97 Oxygen Delivery Method Room Air Room Air Oxygen Flow Rate Sepsis Recent Fever Within 48 Hours No Sepsis New/Unexplained Change in Mental Status Yes Sepsis Action Taken by Nursing Physician Notified 05/24/22 12:00 05/24/22 11:43 05/24/22 14:00 Temperature Temperature Source Pulse Rate Pulse Rate [Apical] 97 H 86 Respiratory Rate 18 16 Respiratory Effort / Characteristics Non-Labored Spontaneous Non-Labored Spontaneous Respiratory Depth Normal Normal Respiratory Pattern Blood Pressure Blood Pressure [Left Arm] 154/71 H 146/74 H Blood Pressure Mean Blood Pressure Mean [Left Arm] 98 98 Pulse Oximetry 100 88 L 97 Oxygen Delivery Method Nasal Cannula Room Air Room Air Oxygen Flow Rate 2 Sepsis Recent Fever Within 48 Hours Sepsis New/Unexplained Change in Mental Status Sepsis Action Taken by Nursing Physical Exam HENT: Exam performed. - Head: Normocephalic and atraumatic. NECK: Normal range of motion. Neck supple. No JVD present. CV: Normal rate, regular rhythm, normal heart sounds and intact distal pulses. There is no peripheral edema. Palpable radial pulses bue. PULM/CHEST: Effort normal and breath sounds normal. No respiratory distress. No stridor. no wheezes. no rales. ABD: The abdomen is soft. There is no tenderness. NEURO: NIHSS 2 (1b:1, 10:1) Course Course 1114: The patient was evaluated in room A2. A complete history and physical exam was performed Cardiac monitoring: An order was placed for continuous cardiac monitoring. The monitor shows a rate of 110 with sinus rhythm interpreted by me Code stroke called. 1132: Son is now reporting that the patient was having difficulty seeing out of her left eye. External medical records reviewed. Patient was seen for almost identical symptoms in December 2021. Discussed case with teleneurology stroke doctor Dr. Cary who states she will help evaluate the patient. 1210: CT scans negative. Spoke with Dr. Cary Riri teleneurology. She reviewed the patient's CT scans and states he and the patient's low NIH stroke scale and her previous old stroke she did not think that the patient would be a good candidate for TNKase. She states to work-up the patient for metabolic or toxic causes of her symptoms and if those do not reveal a cause of the patient's symptoms the patient can have an MRI to rule out stroke. Dr. Cary again states no TNKase for the patient. 1330: Vital signs stable. Labs within normal limits with exception of urine showing possible UTI. Patient treated with Cipro. Patient be admitted to the hospitalist team for TIA/CVA and UTI. Administered Medications Ciprofloxacin (Cipro / D5w) 400 mg in 200 mls @ 100 mls/hr IV NOW STA; Protocol Stop: 05/24/22 15:19 Last Admin: 05/24/22 13:32 Dose: 100 mls/hr Documented By: Discontinued Medications Ioversol (Optiray 320 500ml) 115 ml IV ONCE ONE Stop: 05/24/22 11:43 Last Admin: 05/24/22 11:43 Dose: 115 ml Documented By: PEDRO LUIS Medical Decision Making Laboratory Data Attestation: I reviewed the patient's lab results. 05/24/22 11:39 05/24/22 11:39 Lab Results 05/24/22 05/24/22 05/24/22 Range/Units 11:39 11:39 11:39 WBC 6.75 (4.8-10.8) K/ul RBC 4.07 L (4.20-5.40) M/uL Hgb 12.7 (12.0-16.0) g/dl Hct 39.3 (37.0-47.0) % MCV 96.6 (80.0-100.0) fL MCH 31.2 (25.0-34.0) pg MCHC 32.3 (32.0-36.0) g/dL RDW Std Deviation 46.2 (36.4-46.3) fL RDW Coeff of Dariusz 12.9 (11.5-14.5) % Plt Count 302 (130-400) K/uL MPV 10.0 (9.4-12.4) fL Immature Gran % (Auto) 0.7 % Neut % (Auto) 76.5 % Lymph % (Auto) 16.0 % Carolina % (Auto) 6.2 % Eos % (Auto) 0.3 % Baso % (Auto) 0.3 % Neut # (Auto) 5.16 (1.40-6.50) K/uL Lymph # (Auto) 1.08 L (1.2-3.4) K/uL Carolina # (Auto) 0.42 (0.11-0.59) K/uL Eos # (Auto) 0.02 (0-0.50) K/uL Baso # (Auto) 0.02 (0-0.2) K/uL Immature Gran # (Auto) 0.05 (0.01-0.20) K/uL ESR (0-30) mm/hr PT 11.1 (9.0-12.0) Seconds INR 1.0 (0.9-1.1) APTT 29.3 (21.0-31.0) Seconds PTT Ratio 1.1 ABG pH (7.35-7.45) ABG pCO2 (35-46) mmHg ABG pO2 (80-95) mmHg ABG HCO3 (19-24) mmol/L ABG O2 Saturation (90-95) % ABG Base Excess (-9-1.8) mEq/L Jevon Test (Pos) Oxygen Given Sodium (136-145) mmol/L Potassium (3.5-5.1) mmol/L Chloride (98-107) mmol/L Carbon Dioxide (21-32) mmol/L Anion Gap (3-11) BUN (6-23) mg/dl Creatinine (0.6-1.2) mg/dl Est Cr Clr Drug Dosing ml/min Est GFR ( Amer) ml/min Est GFR (Non-Af Amer) ml/min BUN/Creatinine Ratio (10-20) Glucose (70-99(Fasting)) mg/dl POC Glucose (70-99) mg/dl Calcium (8.6-10.3) mg/dl Magnesium (1.7-2.4) mg/dl Total Bilirubin (0.2-1.0) mg/dl AST (13-39) U/L ALT (7-52) U/L Alkaline Phosphatase (34-104) U/L Ammonia (18-72) umol/L Troponin I High Sens (0-14) pg/ml Total Protein (6.0-8.3) gm/dl Albumin (3.4-5.0) gm/dl Globulin (2.5-4.0) gm/dl Albumin/Globulin Ratio (0.9-2) Urine Color Urine Appearance (Clear) Urine pH (4.5-7.5) Ur Specific Sasabe (1.000-1.030) Urine Protein (Negative) Urine Glucose (UA) (Negative) Urine Ketones (Negative) Urine Blood (Negative) Urine Nitrite (Negative) Urine Bilirubin (Negative) Urine Urobilinogen (Negative) Ur Leukocyte Esterase (Negative) Urine WBC (Auto) (0-5) /hpf Urine RBC (Auto) (0-4) /hpf U Hyaline Cast (Auto) (0-5) /lpf U Epithel Cells (Auto) (0-5) /lpf Urine Bacteria (Auto) (Negative) SARS-CoV-2, RNA, NAAT (NEGATIVE) Blood Type O Positive Antibody Screen NEGATIVE 05/24/22 05/24/22 05/24/22 Range/Units 11:39 11:39 11:43 WBC (4.8-10.8) K/ul RBC (4.20-5.40) M/uL Hgb (12.0-16.0) g/dl Hct (37.0-47.0) % MCV (80.0-100.0) fL MCH (25.0-34.0) pg MCHC (32.0-36.0) g/dL RDW Std Deviation (36.4-46.3) fL RDW Coeff of Dariusz (11.5-14.5) % Plt Count (130-400) K/uL MPV (9.4-12.4) fL Immature Gran % (Auto) % Neut % (Auto) % Lymph % (Auto) % Carolina % (Auto) % Eos % (Auto) % Baso % (Auto) % Neut # (Auto) (1.40-6.50) K/uL Lymph # (Auto) (1.2-3.4) K/uL Carolina # (Auto) (0.11-0.59) K/uL Eos # (Auto) (0-0.50) K/uL Baso # (Auto) (0-0.2) K/uL Immature Gran # (Auto) (0.01-0.20) K/uL ESR 11 (0-30) mm/hr PT (9.0-12.0) Seconds INR (0.9-1.1) APTT (21.0-31.0) Seconds PTT Ratio ABG pH (7.35-7.45) ABG pCO2 (35-46) mmHg ABG pO2 (80-95) mmHg ABG HCO3 (19-24) mmol/L ABG O2 Saturation (90-95) % ABG Base Excess (-9-1.8) mEq/L Jevon Test (Pos) Oxygen Given Sodium 136 (136-145) mmol/L Potassium 3.7 (3.5-5.1) mmol/L Chloride 102 (98-107) mmol/L Carbon Dioxide 27 (21-32) mmol/L Anion Gap 7 (3-11) BUN 17 (6-23) mg/dl Creatinine 0.54 L (0.6-1.2) mg/dl Est Cr Clr Drug Dosing 75.3 ml/min Est GFR ( Amer) 99.7 ml/min Est GFR (Non-Af Amer) 86.0 ml/min BUN/Creatinine Ratio 31.5 H (10-20) Glucose 140 H (70-99(Fasting)) mg/dl POC Glucose 131 H (70-99) mg/dl Calcium 8.6 (8.6-10.3) mg/dl Magnesium 1.9 (1.7-2.4) mg/dl Total Bilirubin 0.4 (0.2-1.0) mg/dl AST 14 (13-39) U/L ALT 13 (7-52) U/L Alkaline Phosphatase 56 (34-104) U/L Ammonia (18-72) umol/L Troponin I High Sens 8.9 (0-14) pg/ml Total Protein 6.4 (6.0-8.3) gm/dl Albumin 3.8 (3.4-5.0) gm/dl Globulin 2.6 (2.5-4.0) gm/dl Albumin/Globulin Ratio 1.5 (0.9-2) Urine Color Urine Appearance (Clear) Urine pH (4.5-7.5) Ur Specific Sasabe (1.000-1.030) Urine Protein (Negative) Urine Glucose (UA) (Negative) Urine Ketones (Negative) Urine Blood (Negative) Urine Nitrite (Negative) Urine Bilirubin (Negative) Urine Urobilinogen (Negative) Ur Leukocyte Esterase (Negative) Urine WBC (Auto) (0-5) /hpf Urine RBC (Auto) (0-4) /hpf U Hyaline Cast (Auto) (0-5) /lpf U Epithel Cells (Auto) (0-5) /lpf Urine Bacteria (Auto) (Negative) SARS-CoV-2, RNA, NAAT (NEGATIVE) Blood Type Antibody Screen 05/24/22 05/24/22 05/24/22 Range/Units 12:15 12:21 12:23 WBC (4.8-10.8) K/ul RBC (4.20-5.40) M/uL Hgb (12.0-16.0) g/dl Hct (37.0-47.0) % MCV (80.0-100.0) fL MCH (25.0-34.0) pg MCHC (32.0-36.0) g/dL RDW Std Deviation (36.4-46.3) fL RDW Coeff of Dariusz (11.5-14.5) % Plt Count (130-400) K/uL MPV (9.4-12.4) fL Immature Gran % (Auto) % Neut % (Auto) % Lymph % (Auto) % [place] % (Auto) % Eos % (Auto) % Baso % (Auto) % Neut # (Auto) (1.40-6.50) K/uL Lymph # (Auto) (1.2-3.4) K/uL Carolina # (Auto) (0.11-0.59) K/uL Eos # (Auto) (0-0.50) K/uL Baso # (Auto) (0-0.2) K/uL Immature Gran # (Auto) (0.01-0.20) K/uL ESR (0-30) mm/hr PT (9.0-12.0) Seconds INR (0.9-1.1) APTT (21.0-31.0) Seconds PTT Ratio ABG pH (7.35-7.45) ABG pCO2 (35-46) mmHg ABG pO2 (80-95) mmHg ABG HCO3 (19-24) mmol/L ABG O2 Saturation (90-95) % ABG Base Excess (-9-1.8) mEq/L Jevon Test (Pos) Oxygen Given Sodium (136-145) mmol/L Potassium (3.5-5.1) mmol/L Chloride (98-107) mmol/L Carbon Dioxide (21-32) mmol/L Anion Gap (3-11) BUN (6-23) mg/dl Creatinine (0.6-1.2) mg/dl Est Cr Clr Drug Dosing ml/min Est GFR ( Amer) ml/min Est GFR (Non-Af Amer) ml/min BUN/Creatinine Ratio (10-20) Glucose (70-99(Fasting)) mg/dl POC Glucose (70-99) mg/dl Calcium (8.6-10.3) mg/dl Magnesium (1.7-2.4) mg/dl Total Bilirubin (0.2-1.0) mg/dl AST (13-39) U/L ALT (7-52) U/L Alkaline Phosphatase (34-104) U/L Ammonia 39.0 (18-72) umol/L Troponin I High Sens (0-14) pg/ml Total Protein (6.0-8.3) gm/dl Albumin (3.4-5.0) gm/dl Globulin (2.5-4.0) gm/dl Albumin/Globulin Ratio (0.9-2) Urine Color Yellow Urine Appearance Cloudy A (Clear) Urine pH 7.5 (4.5-7.5) Ur Specific Sasabe 1.037 H (1.000-1.030) Urine Protein 1+ H (Negative) Urine Glucose (UA) Negative (Negative) Urine Ketones 1+ H (Negative) Urine Blood Trace H (Negative) Urine Nitrite Negative (Negative) Urine Bilirubin Negative (Negative) Urine Urobilinogen Negative (Negative) Ur Leukocyte Esterase Trace H (Negative) Urine WBC (Auto) 10-30 H (0-5) /hpf Urine RBC (Auto) 5-10 H (0-4) /hpf U Hyaline Cast (Auto) 1-5 (0-5) /lpf U Epithel Cells (Auto) >30 H (0-5) /lpf Urine Bacteria (Auto) 3+ H (Negative) SARS-CoV-2, RNA, NAAT NEGATIVE (NEGATIVE) Blood Type Antibody Screen 05/24/22 Range/Units 12:23 WBC (4.8-10.8) K/ul RBC (4.20-5.40) M/uL Hgb (12.0-16.0) g/dl Hct (37.0-47.0) % MCV (80.0-100.0) fL MCH (25.0-34.0) pg MCHC (32.0-36.0) g/dL RDW Std Deviation (36.4-46.3) fL RDW Coeff of Dariusz (11.5-14.5) % Plt Count (130-400) K/uL MPV (9.4-12.4) fL Immature Gran % (Auto) % Neut % (Auto) % Lymph % (Auto) % [place] % (Auto) % Eos % (Auto) % Baso % (Auto) % Neut # (Auto) (1.40-6.50) K/uL Lymph # (Auto) (1.2-3.4) K/uL [place] # (Auto) (0.11-0.59) K/uL Eos # (Auto) (0-0.50) K/uL Baso # (Auto) (0-0.2) K/uL Immature Gran # (Auto) (0.01-0.20) K/uL ESR (0-30) mm/hr PT (9.0-12.0) Seconds INR (0.9-1.1) APTT (21.0-31.0) Seconds PTT Ratio ABG pH 7.42 (7.35-7.45) ABG pCO2 42 (35-46) mmHg ABG pO2 98 H (80-95) mmHg ABG HCO3 27 H (19-24) mmol/L ABG O2 Saturation 99.4 H (90-95) % ABG Base Excess 2.4 H (-9-1.8) mEq/L Jevon Test Pos (Pos) Oxygen Given 1 L Sodium (136-145) mmol/L Potassium (3.5-5.1) mmol/L Chloride (98-107) mmol/L Carbon Dioxide (21-32) mmol/L Anion Gap (3-11) BUN (6-23) mg/dl Creatinine (0.6-1.2) mg/dl Est Cr Clr Drug Dosing ml/min Est GFR ( Amer) ml/min Est GFR (Non-Af Amer) ml/min BUN/Creatinine Ratio (10-20) Glucose (70-99(Fasting)) mg/dl POC Glucose (70-99) mg/dl Calcium (8.6-10.3) mg/dl Magnesium (1.7-2.4) mg/dl Total Bilirubin (0.2-1.0) mg/dl AST (13-39) U/L ALT (7-52) U/L Alkaline Phosphatase (34-104) U/L Ammonia (18-72) umol/L Troponin I High Sens (0-14) pg/ml Total Protein (6.0-8.3) gm/dl Albumin (3.4-5.0) gm/dl Globulin (2.5-4.0) gm/dl Albumin/Globulin Ratio (0.9-2) Urine Color Urine Appearance (Clear) Urine pH (4.5-7.5) Ur Specific S[place]abe (1.000-1.030) Urine Protein (Negative) Urine Glucose (UA) (Negative) Urine Ketones (Negative) Urine Blood (Negative) Urine Nitrite (Negative) Urine Bilirubin (Negative) Urine Urobilinogen (Negative) Ur Leukocyte Esterase (Negative) Urine WBC (Auto) (0-5) /hpf Urine RBC (Auto) (0-4) /hpf U Hyaline Cast (Auto) (0-5) /lpf U Epithel Cells (Auto) (0-5) /lpf Urine Bacteria (Auto) (Negative) SARS-CoV-2, RNA, NAAT (NEGATIVE) Blood Type Antibody Screen Imaging Data Attestation: I personally reviewed and interpreted this imaging study as follows: My Impression: CT head: No [facility] Radiologist's Impression: Chest X-Ray 05/24/22 11:25 SINGLE VIEW CHEST CLINICAL HISTORY: Neurological deficit. Stroke like symptoms. FINDINGS: An AP, portable, upright chest radiograph is compared to study dated 05/18/2021 and correlated with chest CT dated 05/12/2022. The examination is degraded by portable technique and patient rotation. The cardiomediastinal silhouette is unremarkable noting atherosclerotic calcification of the thoracic aorta. Chronic interstitial thickening is similar to previous. There is bibasilar scarring/atelectasis with chronic elevation of the right hemidiaphragm. No airspace consolidation, large pleural effusion, or pneumothorax is seen. The skeletal structures are osteopenic. The bony thorax is grossly intact. Surgical clips are noted in the right axilla. IMPRESSION: No acute cardiopulmonary abnormality. ACT 112: Negative or not required by law. Electronically signed by: Hari Cooper M.D. 05/24/2022 12:[address] 05/24/22 11:[address] DOSE: 1211.73 mGy.cm HISTORY: Confusion. neuro deficit, acute stroke suspected TECHNIQUE: Multiaxial CT images of the head were performed without the use of intravenous contrast. Automated exposure control was utilized for this study. A dose lowering technique was utilized adhering to the principles of ALARA. Comparison: Head CT 01/06/2022. Findings: Near complete opacities in the left maxillary sinus, unchanged. The mastoid air cells are clear. Chronic encephalomalacia within the left occipital lobe consistent with an old infarct again noted. There is no mass, hematoma, midline shift, or acute infarct identified. Mild atrophy and microvascular ischemic changes again noted. Old lacunar infarcts within the bilateral basal ganglia, unchanged. Impression: No significant change compared to the prior study. No acute intracranial abnormality. ACT 112: Negative or not required by law. Electronically signed by: Ronny Lea M.D. 05/24/2022 11:46 AM Head CTA 05/24/22 11:25 CT ANGIOGRAM OF THE BRAIN CLINICAL HISTORY: Neurologic deficit. Stroke like symptoms. COMPARISON STUDY: CT angiogram of the brain dated 01/06/2022. Unenhanced CT of the brain performed concurrently on 05/24/2022. TECHNIQUE: Following the IV administration of 115 cc of Optiray 320, CT angiogram of the brain was performed from the skull base to the vertex. Images are reviewed in the axial, sagittal, and coronal planes. 3-D MIPS images are created and assessed. IV contrast was administered without complication. A dose lowering technique was utilized adhering to the principles of ALARA. FINDINGS: Brain parenchyma: There is age-related involutional change noting moderate subcortical and periventricular microangiopathic disease. Left occipital encephalomalacia is consistent with a remote insult. There is no evidence of hem orrhage, mass effect, or acute territorial ischemia noting angiographic phase technique. There is no evidence of enhancing mass lesion on the angiogram phase images. No extra-axial fluid collection is seen. A chronic lacunar infarct is noted in the left caudate head. León-white matter differentiation is preserved. Ventricles, sulci, and cisterns: Prominent secondary to involutional change. CT angiogram of the brain: There is atherosclerotic calcification of the cavernous carotid and vertebral arteries. The internal carotid arteries are widely patent, as are the anterior and middle cerebral arteries. A focal fenestration is incidentally noted in the M1 segment of the left posterolateral The vertebrobasilar system and posterior cerebral arteries are widely patent. There is origin of the right posterior cerebral artery. The vertebral arteries are codominant. There is no aneurysm, high-grade stenosis, or focal vessel cutoff identified throughout the intracranial circulation. Dural sinuses: Clear as visualized. Orbits: The bony orbits are intact. The orbital contents are normal as visualized noting bilateral ocular lens implants. Sinuses and mastoids: There is subtotal opacification of the left maxillary antrum. Mild mucosal thickening is noted within the ethmoid sinuses. Trace mucosal thickening is seen in the right maxillary sinus. The mastoid air cells are well pneumatized. Calvarium: The skeletal structures are osteopenic. Unremarkable. IMPRESSION: 1. There is no evidence of hemorrhage, mass effect, or acute territorial ischemia noting angiographic phase technique. 2. Unremarkable CT angiogram of the brain. ACT 112: Negative or not required by law. Electronically signed by: Hari Cooper M.D. 05/24/2022 11:57 AM Neck CTA 05/24/22 11:25 NECK CTA HISTORY: Confusion. neuro deficit, acute stroke suspected TECHNIQUE: Multiaxial CT images of the neck were performed following the intravenous administration of contrast to evaluate the major cervical vessels. Maximum intensity projection images were also obtained. All measurements were calculated based on NASCET criteria. A dose lowering technique was utilized adhering to the principles of ALARA. COMPARISON STUDY: Neck CTA 01/06/2022. FINDINGS: The aortic arch and proximal great vessels are widely patent. There is no significant stenosis, occlusion, or dissection identified within the bilateral common carotid, internal carotid, or vertebral arteries. Mild to moderate calcified plaque within the carotid arteries. This remains unchanged. IMPRESSION: No significant stenosis, occlusion, or dissection identified within the carotid or vertebral arteries. ACT 112: Negative or not required by law. Electronically signed by: Ronny Lea M.D. 05/24/2022 11:56 AM ECG Data Attestation: I personally reviewed and interpreted this ECG as follows: Indication: + altered mental status Rate (beats per minute): 115 Rhythm: + sinus tachycardia ECG Intervals/blocks: + Normal QRS, + Normal NE and + Normal QT-c ECG ST segments: + Normal ST segments ECG Findings: + PVCs MDM Narrative 1114: The patient was evaluated in room A2. A complete history and physical exam was performed Cardiac monitoring: An order was placed for continuous cardiac monitoring. The monitor shows a rate of 110 with sinus rhythm interpreted by ks Code stroke called. 1132: Son is now reporting that the patient was having difficulty seeing out of her left eye. External medical records reviewed. Patient was seen for almost identical symptoms in December 2021. Discussed case with teleneurology stroke doctor Dr. Cary who states she will help evaluate the patient. 1210: CT scans negative. Spoke with Dr. Raeann Monethey teleneurology. She reviewed the patient's CT scans and states he and the patient's low NIH stroke scale and her previous old stroke she did not think that the patient would be a good candidate for TNKase. She states to work-up the patient for metabolic or t oxic causes of her symptoms and if those do not reveal a cause of the patient's symptoms the patient can have an MRI to rule out stroke. Dr. Cary again states no TNKase for the patient. 1330: Vital signs stable. Labs within normal limits with exception of urine showing possible UTI. Patient treated with Cipro. Patient be admitted to the hospitalist team for TIA/CVA and UTI. Impression & Plan Brain TIA, Acute UTI Discharge Plan Visit Data Chief Complaint: Confusion Stated Complaint: CONFUSION ED Provider: Tru Galindo Discharge Problem: Brain TIA, Acute UTI Patient Disposition: Admitted As Inpatient Forms Stand Alone [facility]: [facility] Pres[facility] Prescriptions: No Action levothyroxine 125 mcg tablet 125 mcg PO QAM clopidogrel 75 mg tablet 75 mg PO QPM acetaminophen 325 mg Tablet 325 mg PO DIRECTED PRN (Reason: Pain) Rx Instructions: TAKE PER PACKAGE DIRECTIONS ergocalciferol (vitamin D2) [Vitamin D2] 1,250 mcg (50,000 unit) capsule 50,000 unit PO WK Rx Instructions: TAKE THIS MED EVERY SUNDAY. rosuvastatin 5 mg tablet 5 mg PO DAILY Referrals Referrals: PCP,NO [Physician] -
[2022-05-24] MEDS ORDERED: OPTIRAY 320 500ml IV ONE (11:42)
--- NOTE | 2022-05-24 11:47 | CT Scan Report ---
HEAD CT NONCONTRAST CT DOSE: 1211.73 mGy.cm HISTORY: Confusion. neuro deficit, acute stroke suspected TECHNIQUE: Multiaxial CT images of the head were performed without the use of intravenous contrast. A utomated exposure control was utilized for this study. A dose lowering technique was utilized adheri ng to the principles of ALARA. Comparison: Head CT 01/06/2022. Findings: Near complete opacities in the left maxillary sinus, unchanged. The mastoid air cells are c lear. Chronic encephalomalacia within the left occipital lobe consistent with an old infarct again no amado. There is no mass, hematoma, midline shift, or acute infarct identified. Mild atrophy and microva scular ischemic changes again noted. Old lacunar infarcts within the bilateral basal ganglia, unchang ed. Impression: No significant change compared to the prior study. No acute intracranial abnormality. ACT 112: Negative or not required by law. Electronically signed by: Ronny Lea M.D. 05/24/2022 11:46 AM
[2022-05-24 11:53] LABS: Basophils # (auto) 0.02 K/uL (0-0.2); Basophils % (auto) 0.3 %; Eosinophils # (auto) 0.02 K/uL (0-0.50); Eosinophils % (auto) 0.3 %; Hematocrit (blood only) 39.3 % (37.0-47.0); Hemoglobin 12.7 g/dl (12.0-16.0); Immature Granulocytes # (auto) 0.05 K/uL (0.01-0.20); Immature Granulocytes % (auto) 0.7 %; Lymphocytes # (auto) 1.08 K/uL (1.2-3.4); Mean Corpuscular Hemoglobin 31.2 pg (25.0-34.0); Mean Corpuscular Hgb Conc 32.3 g/dL (32.0-36.0); Mean Corpuscular Volume 96.6 fL (80.0-100.0); Monocytes # (auto) 0.42 K/uL (0.11-0.59); Monocytes % (auto) 6.2 %; Neutrophils # (auto) 5.16 K/uL (1.40-6.50); Neutrophils % (auto) 76.5 %; Platelet Count 302 K/uL (130-400); RDW Coefficient of Variation 12.9 % (11.5-14.5); RDW Standard Deviation 46.2 fL (36.4-46.3); Red Blood Count 4.07 M/uL (4.20-5.40); White Blood Count 6.75 K/ul (4.8-10.8)
--- NOTE | 2022-05-24 11:58 | CT Scan Report ---
CT ANGIOGRAM OF THE BRAIN CLINICAL HISTORY: Neurologic deficit. Stroke like symptoms. COMPARISON STUDY: CT angiogram of the brain dated 01/06/2022. Unenhanced CT of the brain performed c oncurrently on 05/24/2022. TECHNIQUE: Following the IV administration of 115 cc of Optiray 320, CT angiogram of the brain was pe rformed from the skull base to the vertex. Images are reviewed in the axial, sagittal, and coronal pl anes. 3-D MIPS images are created and assessed. IV contrast was administered without complication. A dose lowering technique was utilized adhering to the principles of ALARA. FINDINGS: Brain parenchyma: There is age-related involutional change noting moderate subcortical and periventri cular microangiopathic disease. Left occipital encephalomalacia is consistent with a remote insult. T here is no evidence of hemorrhage, mass effect, or acute territorial ischemia noting angiographic pha se technique. There is no evidence of enhancing mass lesion on the angiogram phase images. No extra-a xial fluid collection is seen. A chronic lacunar infarct is noted in the left caudate head. León-whit e matter differentiation is preserved. Ventricles, sulci, and cisterns: Prominent secondary to involutional change. CT angiogram of the brain: There is atherosclerotic calcification of the cavernous carotid and verteb ral arteries. The internal carotid arteries are widely patent, as are the anterior and middle cerebra l arteries. A focal fenestration is incidentally noted in the M1 segment of the left posterolateral T he vertebrobasilar system and posterior cerebral arteries are widely patent. There is origin of the right posterior cerebral artery. The vertebral arteries are codominant. There is no aneurysm, hi gh-grade stenosis, or focal vessel cutoff identified throughout the intracranial circulation. Dural sinuses: Clear as visualized. Orbits: The bony orbits are intact. The orbital contents are normal as visualized noting bilateral oc ular lens implants. Sinuses and mastoids: There is subtotal opacification of the left maxillary antrum. Mild mucosal thic kening is noted within the ethmoid sinuses. Trace mucosal thickening is seen in the right maxillary s inus. The mastoid air cells are well pneumatized. Calvarium: The skeletal structures are osteopenic. Unremarkable. IMPRESSION: 1. There is no evidence of hemorrhage, mass effect, or acute territorial ischemia noting angiographic phase technique. 2. Unremarkable CT angiogram of the brain. ACT 112: Negative or not required by law. Electronically signed by: Hari Cooper M.D. 05/24/2022 11:57 AM
--- NOTE | 2022-05-24 11:58 | CT Scan Report ---
NECK CTA HISTORY: Confusion. neuro deficit, acute stroke suspected TECHNIQUE: Multiaxial CT images of the neck were performed following the intravenous administration o f contrast to evaluate the major cervical vessels. Maximum intensity projection images were also obta ined. All measurements were calculated based on NASCET criteria. A dose lowering technique was utili zed adhering to the principles of ALARA. COMPARISON STUDY: Neck CTA 01/06/2022. FINDINGS: The aortic arch and proximal great vessels are widely patent. There is no significant sten osis, occlusion, or dissection identified within the bilateral common carotid, internal carotid, or v ertebral arteries. Mild to moderate calcified plaque within the carotid arteries. This remains unchan ged. IMPRESSION: No significant stenosis, occlusion, or dissection identified within the carotid or vertebral arteries . ACT 112: Negative or not required by law. Electronically signed by: Ronny Lea M.D. 05/24/2022 11:56 AM
[2022-05-24 12:10] LABS: Albumin Level 3.8 gm/dl (3.4-5.0); Bilirubin,Total 0.4 mg/dl (0.2-1.0); Calcium 8.6 mg/dl (8.6-10.3); Magnesium 1.9 mg/dl (1.7-2.4); Partial Thromboplastin Ratio 1.1; Partial Thromboplastin Time 29.3 Seconds (21.0-31.0); Potassium 3.7 mmol/L (3.5-5.1); Prothrombin Time 11.1 Seconds (9.0-12.0)
[2022-05-24 12:16] LABS: Albumin Globulin Ratio 1.5 (0.9-2); BUN Creatinine Ratio 31.5 (10-20); Creatinine Clr Calc Pharmacy 75.3 ml/min; Est GFR (African American) 99.7 ml/min; Globulin 2.6 gm/dl (2.5-4.0); Total Protein 6.4 gm/dl (6.0-8.3)
[2022-05-24 12:18] LABS: Troponin I High Sensitivity 8.9 pg/ml (0-14)
--- NOTE | 2022-05-24 12:33 | XRay Report ---
SINGLE VIEW CHEST CLINICAL HISTORY: Neurological deficit. Stroke like symptoms. FINDINGS: An AP, portable, upright chest radiograph is compared to study dated 05/18/2021 and correlat ed with chest CT dated 05/12/2022. The examination is degraded by portable technique and patient rotat ion. The cardiomediastinal silhouette is unremarkable noting atherosclerotic calcification of the th oracic aorta. Chronic interstitial thickening is similar to previous. There is bibasilar scarring/ate lectasis with chronic elevation of the right hemidiaphragm. No airspace consolidation, large pleural effusion, or pneumothorax is seen. The skeletal structures are osteopenic. The bony thorax is grossly intact. Surgical clips are noted in the right axilla. IMPRESSION: No acute cardiopulmonary abnormality. ACT 112: Negative or not required by law. Electronically signed by: Hari Cooper M.D. 05/24/2022 12:31 PM
[2022-05-24 12:39] LABS: Base Excess ABG 2.4 mEq/L (-9-1.8); HCO3 ABG 27 mmol/L (19-24); Oxygen Saturation ABG 99.4 % (90-95); PCO2 ABG 42 mmHg (35-46); PO2 ABG 98 mmHg (80-95); pH ABG 7.42 (7.35-7.45)
[2022-05-24 12:42] LABS: Allen Test Pos (Pos)
[2022-05-24 13:00] LABS: Appearance Urine Cloudy (Clear); Bacteria Urine Automated 3+ (Negative); Bilirubin Urine Negative (Negative); Blood Urine Trace (Negative); Color Urine Yellow; Epithelial Cell Urine Auto >30 /lpf (0-5); Glucose Urine UA Negative (Negative); Ketones Urine 1+ (Negative); Leukocyte Esterase Urine Trace (Negative); Nitrite Urine Negative (Negative); Specific Gravity Urine 1.037 (1.000-1.030); Urobilinogen Urine Negative (Negative); pH Urine 7.5 (4.5-7.5)
[2022-05-24 13:15] LABS: Protein Urine 1+ (Negative)
[2022-05-24] MEDS ORDERED: CIPROFLOXACIN / D5W 400 MG/200 ML BAG IV STA (13:20)
--- NOTE | 2022-05-24 13:36 | History & Physical Report ---
Date of Service May 24, 2022 Assessment & Plan (1) Brain TIA: Plan: Altered mental status,? CVA CTA-N: No significant stenosis, occlusion, or dissection identified within the carotid or vertebral arteries. -CTA-H: 1. There is no evidence of hemorrhage, mass effect, or acute territorial ischemia noting angiographic phase technique. 2. Unremarkable CT angiogram of the brain. - CT-H:No significant change compared to the prior study. No acute intracranial abnormality. Last LDL 2019 Recommend increasing rosuvastatin from 5 to 10 mg if LDL is not overly suppressed. Had discussed increase as an outptient and deferred, but pt was concerned about allergies and tolerance. Given age and atrophy will temporarily defer increase from 5 to 10 mg pending lipid results UA infected appearing, alternative cause of symptoms includes infectious encephalopathy MRI pending Patient was hypertensive on admission, improved to 154/71 without antihypertensive treatment Continue Plavix, +3 weeks of DAPT if indicated for new acute infarct if seen on MRI otherwise defer NIHSS of 2 on ER arrival, TNKase not recommended on telestroke consultation in ER A1c pending High-sensitivity troponin normal While pending MRI will allow for permissive hypertension Echo 03/2019 with EF 60-65% PFO was not able to be assessed at that study. T2DM BSG on admission 140. History of DM, not on antiglycemic's at this time. Will place on conservative sliding scale with repeat A1c pending UTI Patient with several days of polyuria, did have a pill in pocket prescription sent by her PCP which she did not take UA infected appearing, tolerating ciprofloxacin We will continue Cipro and follow UC for speciation Hyperlipidemia As noted History of breast cancer with chest wall mets, no extrathoracic mets Follows with CCP History of mastectomy, no residual cancer and has had recent follow-up and reimaging per patient No acute change in management at this time, will get MRI above with contrast Hypothyroidism Continue Synthroid, TSH pending DVT prophylaxis: SCDs diet: Type II DM Disposition: Telemetry CODE STATUS: DNR/DNI, discussed with patient at bedside (2) Diabetes mellitus, type II: (3) History of TIA (transient ischemic attack): History of Present Illness Primary Care Provider: NO PCP Ann is an 87-year-old female with a past medical history of type II DM, CVA/TIA, PMR, hip arthroplasty, hyperlipidemia who presents with an episode of acute confusion which began at 9:30 AM and present to the hospital for TIA evaluation. Initial BP was 206/94 which improved to 154/71. This was reviewed with telestroke who noted old infarcts and chronic encephalomalacia and microvascular ischemic change but no acute findings on head CT. Based on multiple old infarcts TNKase was not recommended. Patient was noted to have UTI symptoms and potentially infected appearing UA, she was recommended for admission for UTI treatment and completion of a stroke evaluation with MRI. Headache, AMS at 9:30am. Acute change this morning and family was converned about TIA. NIHSS: 2 Telestroke: TNKase not recommended, multiple old strokes This morning couldn't think clearly, felt confused Called neighbor, and was having difficulty remembering what she was doing Appeared tremulous and cold, no focal weakness was noted Headache currently Did not pass out. No sycnope/presyncope No chest pain. No chest pressure. No numbness or tingling during episode or after No focal weakness to her knowledge Hx of several TIAs. Takes plaavix at night. Takes rosuva Medical History: Reviewed Medications: Reviewed Surgical History: Reviewed Family history: Reviewed Allergies: Reviewed Social History: No tobacco product use or alochol use. 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 Saw her PCP pill in pocket, but did not take it. Not sure what it was. She is PCN and sulfa allergic. tolerated cipro in the ER. No vaccinations Allergies Allergy/AdvReac Type Severity Reaction Status Date / Time aspirin Allergy Severe ANAPHYLAXIS Verified 05/24/22 11:33 bee venom protein (honey bee) Allergy Severe Anaphylaxis Verified 05/24/22 11:33 ibuprofen Allergy Severe RESP Verified 05/24/22 11:33 DISTRESS;ITCHY tomato Allergy Severe THROATS Verified 05/24/22 11:33 SWELLS - PT CAN EAT COOKED TOMATOES, NOT RAW TOMATOE Penicillins Allergy Intermediate HIVES, Verified 05/24/22 11:33 ITCHING metformin Allergy Unknown Unknown Verified 05/24/22 11:33 codeine AdvReac Intermediate SYNTHETIC Verified 05/24/22 11:33 CODEINE CAUSES NAUSEA-CAN TOLERATE TYLENOL NO.3 Sulfa (Sulfonamide AdvReac Intermediate SEVERE Verified 05/24/22 11:33 Antibiotics) HEADACHE Home Medications Medication Instructions Recorded Confirmed Type clopidogrel 75 mg tablet 75 mg PO QPM 10/16/18 05/24/22 History levothyroxine 125 mcg tablet 125 mcg PO QAM 10/16/18 05/24/22 History acetaminophen 325 mg tablet 325 mg PO DIRECTED PRN Pain 12/01/18 05/24/22 History ergocalciferol (vitamin D2) 1,250 50,000 unit PO WK 04/05/19 05/24/22 History mcg (50,000 unit) capsule (Vitamin D2) rosuvastatin 5 mg tablet 5 mg PO DAILY 03/31/21 05/24/22 History Past Med/Surg History Medical History Diabetes mellitus, type II Dyslipidemia Fibromyalgia History of breast cancer "s/p mastectomy" History of TIA (transient ischemic attack) Hypothyroidism PMR (polymyalgia rheumatica) Stroke Unspecified asthma Surgical History H/O cystoscopy H/O mastectomy "R side secondary to breast CA 2002" H/O total hip arthroplasty "2002" History of cholecystectomy History of tubal ligation Family History Other No pertinent family history in first degree relatives Social History Smoking Status: Never smoker Hx Alcohol Use: No Hx Substance Use: No Preferred Language: Slovenian Communication Ability: Effective Visual Impairment: No Limitations Lag Screwer Required: No Beliefs That Will Affect Care: None Current Living Situation: Alone Feels Safe at Home: Yes Assistive Devices: Walker Review of Systems Review of Systems: All systems reviewed & are unremarkable except as noted in HPI & below Physical Exam Physical Exam: General: A&Ox3. NAD. Cooperative. HEENT: Atraumatic, normocephalic. Pulm: CTAB A&P. -wheezes, -rales, -rhonchi. Symmetrical chest rise. No increased work of breathing. No respiratory distress. Cardiac: RRR, soft SM. Radial pulses intact and symmetrical. Abdominal: Nontender, nondistended, soft. BS present. CRANIAL NERVES: II: Pupils equal and reactive, no relative afferent pupillary defect, no VF cuts III, IV, : EOM intact, no gaze preference or deviation, no nystagmus. V: normal sensation in V1, V2, and V3 segments bilaterally VII: no asymmetry, no nasolabial fold flattening VIII: normal hearing to speech IX, X: normal palatal elevation, no uvular deviation XI: 5/5 head turn and 5/5 shoulder shrug bilaterally XII: midline tongue protrusion MOTOR: RUE: 5/5 Shoulder internal rotation, external rotation, flexion, extension, abduction, adduction 5/5 Elbow flexion/extension, wrist flexion/extension 5/5 golf club weighter strength, finger flexion/extension, interosseus LUE: 5/5 Shoulder internal rotation, external rotation, flexion, extension, abduction, adduction 5/5 Elbow flexion/extension, wrist flexion/extension 5/5 golf club weighter strength, finger flexion/extension, interosseus RLE: 3-4-/5 to hip flexion, 5/5 ankle dorsiflexion/plantarflexion. Hip flexion is unchanged from baseline per patient LLE: 5/5 to hip flexion/extension, knee flexion/extension, ankle dorsiflexion/plantarflexion Results & Data Results & Data Vital Signs (Past 12 Hours) Vital Signs Temp Pulse Pulse Resp BP BP Pulse Ox 05/24/22 11:43 88 L 05/24/22 12:00 97 H 18 154/71 H 100 05/24/22 12:15 90 05/24/22 11:17 05/24/22 11:08 36.7 C 109 H 20 206/94 H 97 O2 Del Method O2 Flow Rate 05/24/22 11:43 Room Air 05/24/22 12:00 Nasal Cannula 2 05/24/22 12:15 05/24/22 11:17 Room Air 05/24/22 11:08 Room Air PG Care Time/CCT Total # of Minutes Spent Total Time Spent with Patient: Total time spent is greater than 50% in coordination of care (as documented) at patient's floor/unit and/or counseling patient: Coding Level of Care Code 09096 INT INP/OBS CARE 3/75MIN Diagnoses Brain TIA G45.9 Diabetes mellitus, type II E11.9 History of TIA (transient ischemic attack) Z86.73
--- NOTE | 2022-05-24 13:51 | Electrocardiogram Report ---
Test Reason : Blood Pressure : / mmHG Vent. Rate : 115 BPM Atrial Rate : 115 BPM P-R Int : 124 ms QRS Dur : 086 ms QT Int : 354 ms P-R-T Axes : 073 041 063 degrees QTc Int : 489 ms Poor data quality, interpretation may be adversely affected Sinus tachycardia with Premature ventricular complexes Possible Left atrial enlargement Cannot rule out Anterior infarct (cited on or before 24-MAY-2022) Abnormal ECG When compared with ECG of 06-JAN-2022 10:42, Non-specific change in ST segment in Inferior leads Nonspecific T wave abnormality now evident in Inferior leads Confirmed by Jimmy Kelly ([id number]) on 05/24/2022 1:51:06 PM Referred By: Confirmed By:Jimmy Kelly
[2022-05-24] MEDS ORDERED: ACETAMINOPHEN 325 MG TAB PO PRN ×2 (14:11→16:08)
[2022-05-24] MEDS ORDERED: CARBOHYDRATES FOR HYPOGLYCEMIA PO PRN (14:13)
[2022-05-24] MEDS ORDERED: GLUCOSE 10 TAB/TUBE PO PRN (14:13)
[2022-05-24] MEDS ORDERED: DEXTROSE 50% 50 ML SYRINGE IV PRN (14:13)
[2022-05-24] MEDS ORDERED: GLUCAGON FOR INJ 1 MG VIAL SQ PRN (14:13)
[2022-05-24] MEDS ORDERED: GLUCOSE 40% GEL 15 GM TUBE PO PRN (14:13)
[2022-05-24] MEDS ORDERED: PHARMACIST DISCHARGE MED REC CONSULT PRN (16:08)
[2022-05-24] MEDS: INSULIN ASPART PER UNIT CHARGE SC SCH ×2 (17:12→20:14)
[2022-05-24] MEDS ORDERED: GADOBUTROL 65ML VIAL IV ONE (18:28)
--- NOTE | 2022-05-24 19:30 | Magnetic Resonance Report ---
MR brain wo/w con HISTORY: 87 years-old Female CVA eval, hx breast ca acute headache with strokelike symptoms. History of breast cancer. COMPARISON: Head CT of same day, brain MRI 04/06/2019. TECHNIQUE: Multiplanar multisequence MRI of the brain was obtained both with and without the use of 7 cc Gadavist. FINDINGS: Midline structures appear unremarkable. Degenerative changes of the cervical spine. No restricted dif fusion. No acute intracranial hemorrhage, midline shift, abnormal extra-axial collection, hydrocephal us or intracranial mass. No pathologic blooming artifact. Involutional changes with moderate T2/FLAIR hyperintense foci throughout the white matter. Chronic left occipital lobe infarct with encephalomal acia and gliosis. Chronic lacunar infarcts of the basal ganglia and cooley radiata. No abnormal enhan cement. Cerebral venous sinuses and major arterial flow voids appear patent. Prior bilateral lens repair. Sku ll and soft tissues unremarkable. Complete opacification of the left maxillary sinus. IMPRESSION: 1. No acute intracranial abnormality. No acute or subacute infarct. 2. Involutional changes with moderate chronic microvascular ischemic disease. 3. Chronic left occipital infarct. ACT 112: Negative or not required by law. The above report was generated using voice recognition software. It may contain grammatical, syntax o r spelling errors. Electronically signed by: Fuentes Sunshine M.D. 05/24/2022 7:28 PM
[2022-05-24] MEDS: CLOPIDOGREL BISULFATE 75 MG TAB PO SCH (20:14)
[2022-05-24] MEDS: CIPROFLOXACIN 250 MG TAB PO SCH (20:14)
[2022-05-25 06:13] LABS: Basophils # (auto) 0.03 K/uL (0-0.2); Basophils % (auto) 0.6 %; Eosinophils # (auto) 0.08 K/uL (0-0.50); Eosinophils % (auto) 1.5 %; Hemoglobin 12.4 g/dl (12.0-16.0); Immature Granulocytes # (auto) 0.02 K/uL (0.01-0.20); Immature Granulocytes % (auto) 0.4 %; Lymphocytes # (auto) 1.56 K/uL (1.2-3.4); Lymphocytes % (auto) 29.1 %; Mean Corpuscular Hemoglobin 30.5 pg (25.0-34.0); Mean Corpuscular Hgb Conc 31.8 g/dL (32.0-36.0); Mean Corpuscular Volume 95.8 fL (80.0-100.0); Mean Platelet Volume 10.2 fL (9.4-12.4); Monocytes # (auto) 0.57 K/uL (0.11-0.59); Monocytes % (auto) 10.6 %; Neutrophils # (auto) 3.11 K/uL (1.40-6.50); Neutrophils % (auto) 57.8 %; Platelet Count 296 K/uL (130-400); RDW Coefficient of Variation 13.2 % (11.5-14.5); RDW Standard Deviation 46.7 fL (36.4-46.3); Red Blood Count 4.07 M/uL (4.20-5.40); White Blood Count 5.37 K/ul (4.8-10.8)
[2022-05-25 06:31] LABS: Calcium 9.2 mg/dl (8.6-10.3); Chol HDL Ratio 2.1 (0-5); Creatinine Clr Calc Pharmacy 64.5 ml/min; Est GFR (African American) 94.8 ml/min; Est GFR (Non-African American) 81.8 ml/min
[2022-05-25] MEDS: LEVOTHYROXINE SODIUM 125 MCG TABLET PO SCH (06:55)
[2022-05-25] MEDS: CIPROFLOXACIN 250 MG TAB PO SCH (08:43)
[2022-05-25] MEDS: ROSUVASTATIN CALCIUM 5 MG TAB PO SCH (08:44)
[2022-05-25] MEDS: INSULIN ASPART PER UNIT CHARGE SC SCH ×4 (08:46→20:58)
[2022-05-25 09:30] LABS: Estimated Average Glucose 126 mg/dl
--- NOTE | 2022-05-25 14:21 | XRay Report ---
XR KUB/Abdomen 1 view CLINICAL HISTORY: Abd pain TECHNIQUE: 1 view of the abdomen was obtained. Comparison: None available at the time of this dictation. FINDINGS: Right hip total arthroplasty noted. Vertebral quadrant cholecystectomy clips seen. Degenerative burks es are seen in the visualized skeleton. The bowel gas pattern is nonobstructive. A moderate amount of stool is noted within the large bowel. IMPRESSION: Nonobstructive bowel gas pattern. ACT 112: Negative or not required by law. Electronically signed by: Jae Nguyen M.D. 05/25/2022 2:19 PM
--- NOTE | 2022-05-25 15:34 | Hospitalist Progress Note ---
Date of Service May 25, 2022 Assessment & Plan (1) Brain TIA: Plan: Strokelike symptoms Altered mental status--likely acute metabolic encephalopathy DD: Possible TIA/UTI --MRI Brain:No acute intracranial abnormality. No acute or subacute infarct. Involutional changes with moderate chronic microvascular ischemic disease. Chronic left occipital infarct. --Head CTA:There is no evidence of hemorrhage, mass effect, or acute territorial ischemia noting angiographic phase technique. Unremarkable CT angiogram of the brain. --Neck CTA:No significant stenosis, occlusion, or dissection identified within the carotid or vertebral arteries. --ECHO: No ASD. Mild concentric LVH. EF 60 to 65%. No segmental left ventricle wall motion normality. Grade 1 diastolic dysfunction. Aortic valve sclerosis mild, without significant aortic valvular stenosis. --LDL:45 -- HbA1c 6.0 H/O Aspirin Allergy leading to anaphylaxis--avoid use Continue Plavix, rosuvastatin Urine culture pending Initially was placed on ciprofloxacin--- given prior resistance to ciprofloxacin, will change to Rocephin PT OT, speech eval Fall precautions Consider neurology evaluation if needed Abdominal pain KUB:Nonobstructive bowel gas pattern. Had bowel movement today We will consider CT abdomen if persistent abdominal pain DM II HbA1c 6.0 Diet controlled No tight glycemic control needed given advanced age Hypothyroidism TSH normal Continue levothyroxine Hyperlipidemia on statin H/O Breast cancer with chest wall mets H/O mastectomy, no residual cancer and has had recent follow-up and reimaging per patient Follows with Oncology as outpatient DVT Px: Heparin SQ CODE STATUS: DNR/DNI Admission and Anticipated Discharge Date Admission Date: May 24, 2022 Subjective Patient is seen and examined at bedside Confusion resolved Reports chronic dizziness, right eye partial vision which is unchanged Reports having mild headache Denies any chest pain, dyspnea, nausea, vomiting Eager to get discharged Review of Systems Review of Systems: All systems reviewed & are unremarkable except as noted in Subjective Physical Exam Physical Exam: Physical Exam: Vitals signs as noted above General Appearance:Thin, frail, elderly, no apparent distress Head: normocephalic, Atraumatic Eyes: normal inspection, EOMI, Chronic Right hemianopsia Neck: supple, Trachea midline Respiratory/Chest: Normal breath sounds, CTA, No accessory muscle use Cardiovascular: S1, S2, No murmur Abdomen/GI:Soft, Non tender, Bowel sounds present Extremities/Musculoskeletal:normal inspection, no edema Neurologic/Psych:AAOX3, R/E 4/5 motor, otherwise grossly no focal deficits Skin: normal color, warm Results & Data Results & Data Vital Signs (Past 12 Hours) Vital Signs Temp Pulse Resp BP Pulse Ox O2 Del Method 05/25/22 11:30 36.8 C 65 18 128/63 95 Room Air 05/25/22 08:27 36.7 C 87 20 121/72 95 Room Air Laboratory Results Short CBC 05/25/22 Range/Units 05:44 WBC 5.37 (4.8-10.8) K/ul Hgb 12.4 (12.0-16.0) g/dl Hct 39.0 (37.0-47.0) % Plt Count 296 (130-400) K/uL BMP 05/25/22 05:44 Sodium 139 Potassium 4.0 Chloride 104 Carbon Dioxide 30 BUN 17 Creatinine 0.63 Glucose 110 H Calcium 9.2
[2022-05-25] MEDS: cefTRIAXone SODIUM 1,000 MG in DEXTROSE 5% AD-VAN 50 ML IV SCH (15:46)
[2022-05-25] MEDS: HEPARIN SOD 5,000 UNIT/0.5 ML VIAL SQ SCH (21:22)
[2022-05-25] MEDS: CLOPIDOGREL BISULFATE 75 MG TAB PO SCH (21:22)
[2022-05-26] MEDS: LEVOTHYROXINE SODIUM 125 MCG TABLET PO SCH (06:21)
[2022-05-26 07:22] LABS: Hematocrit (blood only) 39.4 % (37.0-47.0); Hemoglobin 12.7 g/dl (12.0-16.0); Mean Corpuscular Hemoglobin 30.8 pg (25.0-34.0); Mean Corpuscular Hgb Conc 32.2 g/dL (32.0-36.0); Mean Corpuscular Volume 95.4 fL (80.0-100.0); Mean Platelet Volume 10.4 fL (9.4-12.4); Platelet Count 298 K/uL (130-400); RDW Standard Deviation 45.5 fL (36.4-46.3); Red Blood Count 4.13 M/uL (4.20-5.40); White Blood Count 5.38 K/ul (4.8-10.8)
[2022-05-26 07:39] LABS: Calcium 9.3 mg/dl (8.6-10.3); Creatinine Clr Calc Pharmacy 59.9 ml/min; Est GFR (African American) 92.4 ml/min; Est GFR (Non-African American) 79.8 ml/min; Potassium 4.1 mmol/L (3.5-5.1)
[2022-05-26] MEDS: INSULIN ASPART PER UNIT CHARGE SC SCH (08:24)
[2022-05-26] MEDS: ROSUVASTATIN CALCIUM 5 MG TAB PO SCH (08:28)
[2022-05-26] MEDS: HEPARIN SOD 5,000 UNIT/0.5 ML VIAL SQ SCH (08:28)
[2022-05-26] MEDS: cefTRIAXone SODIUM 1,000 MG in DEXTROSE 5% AD-VAN 50 ML IV SCH (08:29)
--- NOTE | 2022-05-27 17:41 | Discharge Summary ---
Discharge Summary Date of Service 05/26/2022 Notes For Next Care Provider Medication Changes From Visit CEFDINIR 300mg PO BID Admission HPI Per Admitting Provider Ann is an 87-year-old female with a past medical history of type II DM, CVA/TIA, PMR, hip arthroplasty, hyperlipidemia who presents with an episode of acute confusion which began at 9:30 AM and present to the hospital for TIA evaluation. Initial BP was 206/94 which improved to 154/71. This was reviewed with telestroke who noted old infarcts and chronic encephalomalacia and microvascular ischemic change but no acute findings on head CT. Based on multiple old infarcts TNKase was not recommended. Patient was noted to have UTI symptoms and potentially infected appearing UA, she was recommended for admission for UTI treatment and completion of a stroke evaluation with MRI. Headache, AMS at 9:30am. Acute change this morning and family was converned about TIA. NIHSS: 2 Telestroke: TNKase not recommended, multiple old strokes This morning couldn't think clearly, felt confused Called neighbor, and was having difficulty remembering what she was doing Appeared tremulous and cold, no focal weakness was noted Headache currently Did not pass out. No sycnope/presyncope No chest pain. No chest pressure. No numbness or tingling during episode or after No focal weakness to her knowledge Hx of several TIAs. Takes plaavix at night. Takes rosuva Medical History: Reviewed Medications: Reviewed Surgical History: Reviewed Family history: Reviewed Allergies: Reviewed Social History: No tobacco product use or alochol use. 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 Saw her PCP pill in pocket, but did not take it. Not sure what it was. She is PCN and sulfa allergic. tolerated cipro in the ER. No vaccinations Principal Dx & Hospital Course #1 = Principal Diagnosis (1) Acute metabolic encephalopathy: (2) Acute UTI: (3) Diabetes mellitus, type II: (4) History of breast cancer: (5) PMR (polymyalgia rheumatica): (6) H/O: stroke: Plan 87 yo F with history of DMII, CVA/TIA, PMR presented with acute confusion. Initial BP was 206/94 which improved. Telestroke saw her and noted old infarcts and chronic encephalomalacia and microvascular ischemic changes without new acute findings on initial head CT. Because of multiple old infarctions present, TNKase was not recommended. She was subsequently found to have a UTI and her initial symptoms resolved with antibiotic administration. Notably she had been on ciprofloxacin prior to the urine culture being drawan. She was admitted to [facility], and a brain MRI revealed no acute intracranial abnormality and no acute or subacute infarct. Chronic involution change with moderate chronic microvascular ischemic disease present and a chronic left occipital infarct. A head and neck CT with angiography was also performed revealing no significant stenosis, occlusion or dissection within the carotid or vertebral arteries and an unremarkable head CT angiogram. A TTE revealed that the interatrial septum was intact with no evidence for ASD. She was on Plavix and statin with a known aspirin allergy prior to admission. Clinically she improved with antibiotics, and retrospectively, her clinical picture was more consistent with acute metabolic encephalopathy 2/2 UTI rather than a new TIA or stroke. Short antibiotic course was continued at discharge. PT and OT evaluated her and recommended it was safe for her to return home. She was discharged in stable condition with close primary care followup recommended. Updated Medication List Medication Instructions Recorded Confirmed Type clopidogrel 75 mg tablet 75 mg PO QPM 10/16/18 05/24/22 History levothyroxine 125 mcg tablet 125 mcg PO QAM 10/16/18 05/24/22 History acetaminophen 325 mg tablet 325 mg PO DIRECTED PRN Pain 12/01/18 05/24/22 History ergocalciferol (vitamin D2) 1,250 50,000 unit PO WK 04/05/19 05/24/22 History mcg (50,000 unit) capsule (Vitamin D2) rosuvastatin 5 mg tablet 5 mg PO DAILY 03/31/21 05/24/22 History cefdinir 300 mg capsule 300 mg PO BID #5 caps 05/26/22 Rx Hospital Stay Data Consultations 05/24/22 13:26 ED Decision to Admit Stat Diagnostic Imagining Performed 05/24/22 11:25 CT angio head w con Stat CT angio neck with con Stat CT head/brain wo con Stat 05/24/22 14:20 MR brain wo/w con Routine Pending Results Patient Have Any Pending Studies at Discharge: No Discharge Instructions Given to Patient (Per Discharging Provider) Please take all medications as instructed on discharge list below. The clinical picture and evidence points towards an infectious cause to your confusion, which has improved with treatment. You will be given a few more doses of antibiotics at discharge. Close primary care followup is recommended within a week of discharge. It was a pleasure taking care of you! Please call if you have any questions or problems. You can reach a [facility] hospitalist on duty at [facility] 24 hours a day by calling [phone]. Take care of yourself. Micaela Asif, [facility] Farm[facility] Total Time Total Time Spent Total Time Spent (In Minutes): 60
[2022-05-28] MEDS ORDERED: ERGOCALCIFEROL 50,000 UNITS 1250 MCG CAP PO SCH (09:00)
== END 2022-05-26 12:11 | disposition home or self-care (01) ==
LOC: ED 11:07 → 2S 11:07 → SUATTDRO 14:20 → 2S 15:03